=== PATIENT | male | born 1960 | race Caucasian/White ===

== ENCOUNTER 2020-02-06 13:08 | Emergency (ER) | payer OTHER ==
[~2020-02-06] VITALS: Ht 188 cm; Wt 100.0 kg
[2020-02-06] MEDS ORDERED: HYDROcodone/acetaminophen 5mg/325mg tablet PO ONE (16:20)
--- NOTE | 2020-02-06 16:29 | NUR ---
oracle technical developer at bedside.
[2020-02-06] MEDS ORDERED: CEPH250T PO (17:10)
[2020-02-06 17:33] VITALS: BP 98/69
== END 2020-02-06 17:34 | disposition home or self-care (01) ==
LOC: ER 13:08
DX: L97.311 Non-pressure chronic ulcer of right ankle limited to breakdown of skin (principal); I25.10 Atherosclerotic heart disease of native coronary artery without angina pectoris; I50.9 Heart failure, unspecified; I25.2 Old myocardial infarction; F17.200 Nicotine dependence, unspecified, uncomplicated; F15.90 Other stimulant use, unspecified, uncomplicated; F11.90 Opioid use, unspecified, uncomplicated
CPT/HCPCS: 93925; 99284

== ENCOUNTER 2020-02-11 09:15 | Outpatient (CLI) | payer OTHER ==
[~2020-02-11 09:15] MED LIST: CEPH250T PO
[2020-02-11] MEDS ORDERED: LIDOcaine 2% 5ml jelly ONE ×2 (11:01→11:06)
== END 2020-02-11 12:06 | disposition home or self-care (01) ==
LOC: WOUND CARE 09:15
PROVIDERS: ATTEND Nurse Practitioner
DX: I70.232 Atherosclerosis of native arteries of right leg with ulceration of calf (principal); I70.242 Atherosclerosis of native arteries of left leg with ulceration of calf; L97.222 Non-pressure chronic ulcer of left calf with fat layer exposed; L97.212 Non-pressure chronic ulcer of right calf with fat layer exposed; L03.116 Cellulitis of left lower limb; L03.115 Cellulitis of right lower limb; I25.10 Atherosclerotic heart disease of native coronary artery without angina pectoris; I50.9 Heart failure, unspecified; I25.2 Old myocardial infarction; F17.210 Nicotine dependence, cigarettes, uncomplicated; F11.90 Opioid use, unspecified, uncomplicated; F15.90 Other stimulant use, unspecified, uncomplicated
CPT/HCPCS: 87070; 87075; 87077; 87102; 87186; 97597

== ENCOUNTER → 2020-02-12 | Emergency (ER) | payer OTHER ==
[~2020-02-12] VITALS: Ht 188 cm; Wt 100.0 kg
[2020-02-12 14:37] VITALS: BP 108/71
== END | disposition home or self-care (01) ==
LOC: ER 14:01
DX: L03.119 Cellulitis of unspecified part of limb (principal); I25.10 Atherosclerotic heart disease of native coronary artery without angina pectoris; I50.9 Heart failure, unspecified; I25.2 Old myocardial infarction; F15.90 Other stimulant use, unspecified, uncomplicated; F11.90 Opioid use, unspecified, uncomplicated; Z79.899 Other long term (current) drug therapy
CPT/HCPCS: 99281

== ENCOUNTER 2020-02-16 11:30 | Day surgery (SDC) | payer OTHER ==
[2020-02-16] MEDS ORDERED: LIDOcaine 2% 5ml jelly ONE ×2 (12:23)
[2020-02-16] MEDS ORDERED: LIDOcaine 1% w/epiNEPHrine 1:200,000 30ml vial ONE (12:40)
== END 2020-02-17 14:05 | disposition home or self-care (01) ==
LOC: WOUND CARE 11:30
PROVIDERS: ATTEND Nurse Practitioner
DX: I70.232 Atherosclerosis of native arteries of right leg with ulceration of calf (principal); L97.212 Non-pressure chronic ulcer of right calf with fat layer exposed; I70.242 Atherosclerosis of native arteries of left leg with ulceration of calf; L97.222 Non-pressure chronic ulcer of left calf with fat layer exposed; L03.116 Cellulitis of left lower limb; L03.115 Cellulitis of right lower limb; I25.10 Atherosclerotic heart disease of native coronary artery without angina pectoris; I50.9 Heart failure, unspecified; I25.2 Old myocardial infarction; F17.210 Nicotine dependence, cigarettes, uncomplicated; F11.90 Opioid use, unspecified, uncomplicated; F15.90 Other stimulant use, unspecified, uncomplicated; Z79.899 Other long term (current) drug therapy; Z98.890 Other specified postprocedural states
CPT/HCPCS: 97597; 97598

== ENCOUNTER 2020-02-23 11:45 | Day surgery (SDC) | payer MEDICAID, OTHER ==
[2020-02-23] MEDS ORDERED: LIDOcaine 2% 5ml jelly ONE (12:32)
[2020-02-23] MEDS ORDERED: LIDOcaine 1% w/epiNEPHrine 1:200,000 30ml vial ONE (14:01)
== END 2020-02-23 15:14 | disposition home or self-care (01) ==
LOC: WOUND CARE 11:45
PROVIDERS: ATTEND Nurse Practitioner
DX: I70.232 Atherosclerosis of native arteries of right leg with ulceration of calf (principal); L97.212 Non-pressure chronic ulcer of right calf with fat layer exposed; I70.242 Atherosclerosis of native arteries of left leg with ulceration of calf; L97.222 Non-pressure chronic ulcer of left calf with fat layer exposed; L03.116 Cellulitis of left lower limb; L03.115 Cellulitis of right lower limb; K21.9 Gastro-esophageal reflux disease without esophagitis; I25.10 Atherosclerotic heart disease of native coronary artery without angina pectoris; I50.9 Heart failure, unspecified; I25.2 Old myocardial infarction; F17.210 Nicotine dependence, cigarettes, uncomplicated; F11.90 Opioid use, unspecified, uncomplicated; F15.90 Other stimulant use, unspecified, uncomplicated
CPT/HCPCS: 97597

== ENCOUNTER 2020-02-27 11:59 | Emergency (ER) | payer MEDICAID ==
[~2020-02-27] VITALS: Ht 188 cm; Wt 100.0 kg
[2020-02-27] MEDS ORDERED: OMEP20CA15 PO (12:44)
[2020-02-27] MEDS ORDERED: PRED20TA PO (12:44)
[2020-02-27] MEDS ORDERED: SUCR1TAB34 PO (12:44)
[2020-02-27] MEDS ORDERED: famotidine 10mg tablet PO ONE (12:45)
[2020-02-27] MEDS ORDERED: sucralfate 1gm/10ml UD suspension PO SCH (12:45)
[2020-02-27] MEDS ORDERED: diphenhydrAMINE 25mg capsule PO ONE (12:45)
[2020-02-27] MEDS ORDERED: dexamethasone 4mg tablet PO ONE (12:45)
[2020-02-27] MEDS ORDERED: mag hydrox/Alum hydrox/simeth 30ml oral suspension PO ONE (12:45)
[2020-02-27] MEDS ORDERED: LIDOcaine Viscous 15ml cup MM PRN (12:45)
[2020-02-27 13:38] VITALS: BP 119/68
== END 2020-02-27 13:39 | disposition home or self-care (01) ==
LOC: ER 12:00
DX: R10.13 Epigastric pain (principal); T50.905A Adverse effect of unspecified drugs, medicaments and biological substances, initial encounter; K21.9 Gastro-esophageal reflux disease without esophagitis; I25.10 Atherosclerotic heart disease of native coronary artery without angina pectoris; I50.9 Heart failure, unspecified; I25.2 Old myocardial infarction; F15.90 Other stimulant use, unspecified, uncomplicated; F11.90 Opioid use, unspecified, uncomplicated; Z98.890 Other specified postprocedural states; Z79.899 Other long term (current) drug therapy; Y92.89 Other specified places as the place of occurrence of the external cause
CPT/HCPCS: 99284; Q0163

== ENCOUNTER 2020-03-01 14:15 | Day surgery (SDC) | payer MEDICAID ==
[~2020-03-01 14:15] MED LIST changes: -CEPH250T PO; +OMEP20CA15 PO; +PRED20TA PO; +SUCR1TAB34 PO
[2020-03-01] MEDS ORDERED: LIDOcaine 2% 5ml jelly ONE (14:41)
[2020-03-01] MEDS ORDERED: hydrocortisone 1% cream 28gm TP ONE (15:32)
== END 2020-03-01 16:04 | disposition home or self-care (01) ==
LOC: WOUND CARE 14:15
PROVIDERS: ATTEND Nurse Practitioner
DX: I70.238 Atherosclerosis of native arteries of right leg with ulceration of other part of lower leg (principal); L97.812 Non-pressure chronic ulcer of other part of right lower leg with fat layer exposed; I70.248 Atherosclerosis of native arteries of left leg with ulceration of other part of lower leg; L97.821 Non-pressure chronic ulcer of other part of left lower leg limited to breakdown of skin; I70.243 Atherosclerosis of native arteries of left leg with ulceration of ankle; L97.321 Non-pressure chronic ulcer of left ankle limited to breakdown of skin; I70.232 Atherosclerosis of native arteries of right leg with ulceration of calf; L97.212 Non-pressure chronic ulcer of right calf with fat layer exposed; I70.242 Atherosclerosis of native arteries of left leg with ulceration of calf; L97.222 Non-pressure chronic ulcer of left calf with fat layer exposed; L03.115 Cellulitis of right lower limb; I25.10 Atherosclerotic heart disease of native coronary artery without angina pectoris; K21.9 Gastro-esophageal reflux disease without esophagitis; I50.9 Heart failure, unspecified; I25.2 Old myocardial infarction; F17.210 Nicotine dependence, cigarettes, uncomplicated; F11.90 Opioid use, unspecified, uncomplicated; F15.90 Other stimulant use, unspecified, uncomplicated
CPT/HCPCS: 97597; 97598

== ENCOUNTER 2020-03-08 14:10 | Day surgery (SDC) | payer MEDICAID ==
[2020-03-08] MEDS ORDERED: LIDOcaine 2% 5ml jelly ONE (14:20)
== END 2020-03-08 15:22 | disposition home or self-care (01) ==
LOC: WOUND CARE 14:10
PROVIDERS: ATTEND Nurse Practitioner
DX: I70.238 Atherosclerosis of native arteries of right leg with ulceration of other part of lower leg (principal); L97.812 Non-pressure chronic ulcer of other part of right lower leg with fat layer exposed; I70.248 Atherosclerosis of native arteries of left leg with ulceration of other part of lower leg; L97.821 Non-pressure chronic ulcer of other part of left lower leg limited to breakdown of skin; I70.232 Atherosclerosis of native arteries of right leg with ulceration of calf; L97.212 Non-pressure chronic ulcer of right calf with fat layer exposed; I70.242 Atherosclerosis of native arteries of left leg with ulceration of calf; L97.222 Non-pressure chronic ulcer of left calf with fat layer exposed; S81.802D Unspecified open wound, left lower leg, subsequent encounter; L03.115 Cellulitis of right lower limb; I25.10 Atherosclerotic heart disease of native coronary artery without angina pectoris; K21.9 Gastro-esophageal reflux disease without esophagitis; I50.9 Heart failure, unspecified; I25.2 Old myocardial infarction; F17.210 Nicotine dependence, cigarettes, uncomplicated; F11.90 Opioid use, unspecified, uncomplicated; F15.90 Other stimulant use, unspecified, uncomplicated; Z79.899 Other long term (current) drug therapy; X58.XXXD Exposure to other specified factors, subsequent encounter
CPT/HCPCS: 97597; 97598

== ENCOUNTER 2020-03-15 13:20 | Day surgery (SDC) | payer MEDICAID ==
[2020-03-15] MEDS ORDERED: LIDOcaine 2% 5ml jelly ONE (13:32)
[2020-03-15] MEDS ORDERED: hydrocortisone 1% cream 28gm TP ONE (14:04)
== END 2020-03-15 14:14 | disposition home or self-care (01) ==
LOC: WOUND CARE 13:20
PROVIDERS: ATTEND Nurse Practitioner
DX: I70.238 Atherosclerosis of native arteries of right leg with ulceration of other part of lower leg (principal); L97.812 Non-pressure chronic ulcer of other part of right lower leg with fat layer exposed; I70.232 Atherosclerosis of native arteries of right leg with ulceration of calf; L97.212 Non-pressure chronic ulcer of right calf with fat layer exposed; I70.242 Atherosclerosis of native arteries of left leg with ulceration of calf; L97.222 Non-pressure chronic ulcer of left calf with fat layer exposed; L03.116 Cellulitis of left lower limb; L03.115 Cellulitis of right lower limb; I25.10 Atherosclerotic heart disease of native coronary artery without angina pectoris; I50.9 Heart failure, unspecified; K21.9 Gastro-esophageal reflux disease without esophagitis; I25.2 Old myocardial infarction; F17.210 Nicotine dependence, cigarettes, uncomplicated; F11.90 Opioid use, unspecified, uncomplicated; F15.90 Other stimulant use, unspecified, uncomplicated; Z79.899 Other long term (current) drug therapy
CPT/HCPCS: 97597

== ENCOUNTER 2020-03-27 11:30 | Day surgery (SDC) | payer MEDICAID ==
[2020-03-27] MEDS ORDERED: LIDOcaine 2% 5ml jelly ONE (12:23)
[2020-03-27] MEDS ORDERED: hydrocortisone 1% cream 28gm TP ONE (12:51)
== END 2020-03-27 13:05 | disposition home or self-care (01) ==
LOC: WOUND CARE 11:30
PROVIDERS: ATTEND Nurse Practitioner Family
DX: I70.238 Atherosclerosis of native arteries of right leg with ulceration of other part of lower leg (principal); L97.812 Non-pressure chronic ulcer of other part of right lower leg with fat layer exposed; I70.232 Atherosclerosis of native arteries of right leg with ulceration of calf; L97.212 Non-pressure chronic ulcer of right calf with fat layer exposed; I70.242 Atherosclerosis of native arteries of left leg with ulceration of calf; L97.222 Non-pressure chronic ulcer of left calf with fat layer exposed; L03.116 Cellulitis of left lower limb; L03.115 Cellulitis of right lower limb; I25.10 Atherosclerotic heart disease of native coronary artery without angina pectoris; I50.9 Heart failure, unspecified; K21.9 Gastro-esophageal reflux disease without esophagitis; I25.2 Old myocardial infarction; F17.210 Nicotine dependence, cigarettes, uncomplicated; F11.90 Opioid use, unspecified, uncomplicated; F15.90 Other stimulant use, unspecified, uncomplicated; Z79.899 Other long term (current) drug therapy
CPT/HCPCS: 97597; 97598

== ENCOUNTER 2020-03-29 14:14 | Inpatient (IN) | payer MEDICAID ==
[~2020-03-29] VITALS: Ht 188 cm; Wt 100.0 kg
[2020-03-29] MEDS ORDERED: HYDROcodone/acetaminophen 5mg/325mg tablet PO ONE (14:55)
[2020-03-29 16:27] LABS: BASOPHILS # (AUTO) 0.1 X10'3 (0-0.2); BASOPHILS % (AUTO) 0.6 % (0-1); EOSINOPHILS # (AUTO) 0.3 X10'3 (0-0.9); EOSINOPHILS % (AUTO) 2.8 % (0-6); HEMATOCRIT 30.9 % (42.0-52.0); HEMOGLOBIN 10.1 g/dl (14.0-17.9); LYMPHOCYTES # (AUTO) 2.1 X10'3 (1.1-4.8); LYMPHOCYTES % (AUTO) 20.6 % (21-51); MEAN CORPUSCULAR HEMOGLOBIN 27.6 PG (27.0-31.0); MEAN CORPUSCULAR HGB CONC 32.8 g/dL (33.0-36.5); MEAN PLATELET VOLUME 6.6 FL (7.4-10.4); MONOCYTES # (AUTO) 2.2 X10'3 (0-0.9); NEUTROPHILS # (AUTO) 5.7 X10'3 (1.8-7.7); PLATELET COUNT 314 X10'3 (140-440); RED BLOOD COUNT 3.68 X10'6 (4.70-6.10); RED CELL DISTRIBUTION WIDTH 17.8 % (11.5-14.5); WHITE BLOOD COUNT 10.3 X10'3 (4.5-11.0)
[2020-03-29] MEDS ORDERED: enoxaparin 100mg/ml syringe SUBCUT ONE (16:30)
[2020-03-29 16:44] LABS: ALANINE AMINOTRANSFERASE 14 U/L (12-78); ALBUMIN 2.5 G/DL (3.4-5.0); ALBUMIN/GLOBULIN RATIO 0.5 (1.1-1.5); ALKALINE PHOSPHATASE 138 IU/L (46-116); ANION GAP 6 (8-16); ASPARTATE AMINO TRANSFERASE 18 U/L (10-37); BILIRUBIN,TOTAL 0.4 MG/DL (0.1-1.0); BLOOD UREA NITROGEN 9 MG/DL (7-18); BUN/CREATININE RATIO 9.6 (5.4-32.0); CALCIUM 8.6 MG/DL (8.5-10.1); CHLORIDE 102 MMOL/L (99-107); CREATININE 0.94 MG/DL (0.60-1.10); GLUCOSE 107 MG/DL (70-104); POTASSIUM 3.8 MMOL/L (3.5-5.1); SODIUM 132 MMOL/L (135-145); TOTAL CARBON DIOXIDE 23.6 MMOL/L (24-32); TOTAL PROTEIN 7.2 G/DL (6.4-8.2); eGFR 82 ML/MIN
[2020-03-29 17:19] LABS: ANISOCYTOSIS 1+; PLATELET ESTIMATE NORMAL; SCHISTOCYTES 1+; TOTAL CELLS COUNTED 100
[2020-03-29 17:20] LABS: ACANTHOCYTES FEW; BURR CELLS 1+; POLYCHROMASIA 1+
[2020-03-29 17:22] LABS: ELLIPTOCYTES 1+
[2020-03-29] MEDS ORDERED: NO HOME MEDS (17:27)
[2020-03-29] MEDS ORDERED: iohexol 350MG/ML 100ml bottle IV ONE (17:32)
--- NOTE | 2020-03-29 18:11 | NUR ---
Clarifying heparin order based on DVT/PE protocol and the lovenox dose already was given. Pharmacy is researching the time in between to start the dose.
--- NOTE | 2020-03-29 18:11 | NUR ---
Patient reported he takes methadone routinely. Spoke with Tor, Pharmacist to let him know this needs to be added to the medication reconciliation. He reports he will pull a [facility] report to verify the dosing if possible.
--- NOTE | 2020-03-29 21:03 | NUR ---
Patient has been seen by the Hospitalist and admission orders are pending.
[2020-03-29] MEDS: normal saline 1000ml 1,000 ML IV SCH (21:25)
[2020-03-29] MEDS ORDERED: magnesium 2GM in 50ml NS 50 ML IV PRN (21:25)
[2020-03-29] MEDS ORDERED: magnesium 4gm in 100ml NS 100 ML IV PRN (21:25)
[2020-03-29] MEDS ORDERED: potassium CL 10mEq/100ml bag 100 ML IV PRN ×2 (21:25)
[2020-03-29] MEDS ORDERED: potassium Cl 20 mEq SR tablet PO PRN (21:25)
[2020-03-29] MEDS ORDERED: ondansetron/PF 4mg/2ml inj IV PRN (21:25)
[2020-03-29] MEDS ORDERED: magnesium Cl slow-release 64mg tablet PO PRN (21:25)
[2020-03-29] MEDS ORDERED: morphine 2 MG/ML inj. syringe IV PRN (21:25)
[2020-03-29] MEDS ORDERED: ipratropium/albuterol 3ml nebule NEB PRN ×2 (21:25)
[2020-03-29] MEDS ORDERED: acetaminophen 325mg tablet PO PRN (21:25)
[2020-03-29 22:00] VITALS: BP 118/69
--- NOTE | 2020-03-29 22:02 | NUR ---
Pt given a sandwich and yogurt to eat with apple juice and water to drink. Pt is awaiting admission bed assignment.
[2020-03-29 22:42] LABS: TROPONIN I < 0.04 NG/ML (0.0-0.05)
[2020-03-29] MEDS: HYDROcodone/acetaminophen 5mg/325mg tablet PO PRN (23:30)
[2020-03-30 02:02] LABS: EOSINOPHILS # (AUTO) 0.4 X10'3 (0-0.9); MEAN PLATELET VOLUME 6.7 FL (7.4-10.4); MONOCYTES # (AUTO) 2.2 X10'3 (0-0.9)
[2020-03-30 02:04] LABS: BASOPHILS # (AUTO) 0.1 X10'3 (0-0.2); EOSINOPHILS % (AUTO) 3.7 % (0-6); HEMATOCRIT 30.5 % (42.0-52.0); HEMOGLOBIN 9.8 g/dl (14.0-17.9); LYMPHOCYTES # (AUTO) 2.8 X10'3 (1.1-4.8); LYMPHOCYTES % (AUTO) 25.9 % (21-51); MEAN CORPUSCULAR HEMOGLOBIN 26.9 PG (27.0-31.0); MEAN CORPUSCULAR HGB CONC 32.3 g/dL (33.0-36.5); MEAN CORPUSCULAR VOLUME 83.1 FL (78-98); MONOCYTES % (AUTO) 20.2 % (2-12); NEUTROPHILS # (AUTO) 5.3 X10'3 (1.8-7.7); NEUTROPHILS % (AUTO) 49.2 % (42-75); PLATELET COUNT 316 X10'3 (140-440); RED BLOOD COUNT 3.67 X10'6 (4.70-6.10); RED CELL DISTRIBUTION WIDTH 18.4 % (11.5-14.5); WHITE BLOOD COUNT 10.8 X10'3 (4.5-11.0)
[2020-03-30 02:13] LABS: ALBUMIN 2.3 G/DL (3.4-5.0); ANION GAP 7 (8-16); BLOOD UREA NITROGEN 9 MG/DL (7-18); BUN/CREATININE RATIO 10.3 (5.4-32.0); CALCIUM 8.3 MG/DL (8.5-10.1); CHLORIDE 102 MMOL/L (99-107); CREATININE 0.87 MG/DL (0.60-1.10); GLUCOSE 95 MG/DL (70-104); MAGNESIUM 2.2 MG/DL (1.5-2.4); POTASSIUM 3.4 MMOL/L (3.5-5.1); SODIUM 133 MMOL/L (135-145); TOTAL CARBON DIOXIDE 23.9 MMOL/L (24-32); eGFR 90 ML/MIN
[2020-03-30 02:15] LABS: ANISOCYTOSIS 1+; ELLIPTOCYTES 1+; PLATELET ESTIMATE NORMAL; POIKILOCYTOSIS 2+; POLYCHROMASIA 1+; SCHISTOCYTES 1+; TOTAL CELLS COUNTED 100
[2020-03-30 02:16] LABS: ACANTHOCYTES 2+; BURR CELLS 2+
[2020-03-30] MEDS: heparin 25,000 UNIT/250ml bag 250 ML IV SCH ×2 (02:52→15:49)
--- NOTE | 2020-03-30 06:44 | NUR ---
Patient in room PCU 3023. I have received report from Ania ZURITA and had the opportunity to ask questions and assume patient care.
[2020-03-30 07:00] VITALS: BP 90/63
[2020-03-30] MEDS: HYDROcodone/acetaminophen 5mg/325mg tablet PO PRN (07:37)
[2020-03-30] MEDS: docusate sod 100mg capsule PO SCH ×2 (07:37→19:34)
[2020-03-30] MEDS: potassium Cl 20 mEq SR tablet PO PRN ×3 (07:38→18:25)
[2020-03-30] MEDS: K and/or MAG REPLACEMENT MC SCH ×2 (08:00→19:37)
[2020-03-30 11:00] VITALS: BP 94/63
[2020-03-30] MEDS: methadone 10mg tablet PO SCH (11:19)
[2020-03-30] MEDS: HYDROcodone/acetaminophen 10/325mg tab PO PRN ×3 (14:25→23:03)
[2020-03-30 15:00] VITALS: BP 88/61
--- NOTE | 2020-03-30 17:34 | NUR ---
patient remains on bedrest for DVT. heparin infusion continues. patient is therapeutic . For VL study Commenced on methadone. patient takes this daily. Checked with clinic [facility] [phone], to verify dosage. [place] ok by DR Rhodes to take for breakthrough pain given x1 dose with effect. does not advise IV pain relief. patient compliant with care. Seen by wound care, dressing to left leg is to remain in tact, as patient is seen already by wound care weekly. see note.
[2020-03-30 18:00] VITALS: BP 99/71
--- NOTE | 2020-03-30 18:32 | NUR ---
Patient in room U 3023. I have received report from PARMINDER Hassan and had the opportunity to ask questions and assume patient care. Addendum: 03/30/20 at 1832 by Mirtha Awad RN Amended: Links added.
--- NOTE | 2020-03-30 18:32 | NUR ---
Problems reprioritized. Patient report given, questions answered & plan of care reviewed with deven ZURITA.
--- NOTE | 2020-03-30 18:46 | NUR ---
Vascular repaged about doing vascular studies as wasnt done. Tech stated he will do this in am. This staff member had called earlier in day to affirm test needed doing.
[2020-03-30] MEDS: sucralfate 1gm/10ml UD suspension PO SCH (20:18)
[2020-03-31 02:00] VITALS: BP 115/73
[2020-03-31 02:42] LABS: BASOPHILS # (AUTO) 0.1 X10'3 (0-0.2); BASOPHILS % (AUTO) 0.6 % (0-1); EOSINOPHILS # (AUTO) 0.3 X10'3 (0-0.9); EOSINOPHILS % (AUTO) 2.7 % (0-6); HEMATOCRIT 32.8 % (42.0-52.0); HEMOGLOBIN 10.7 g/dl (14.0-17.9); LYMPHOCYTES # (AUTO) 3.1 X10'3 (1.1-4.8); LYMPHOCYTES % (AUTO) 29.5 % (21-51); MEAN CORPUSCULAR HEMOGLOBIN 26.9 PG (27.0-31.0); MEAN CORPUSCULAR HGB CONC 32.7 g/dL (33.0-36.5); MEAN CORPUSCULAR VOLUME 82.4 FL (78-98); MEAN PLATELET VOLUME 6.7 FL (7.4-10.4); MONOCYTES # (AUTO) 1.8 X10'3 (0-0.9); MONOCYTES % (AUTO) 17.3 % (2-12); NEUTROPHILS # (AUTO) 5.3 X10'3 (1.8-7.7); NEUTROPHILS % (AUTO) 49.9 % (42-75); PLATELET COUNT 383 X10'3 (140-440); RED BLOOD COUNT 3.99 X10'6 (4.70-6.10); RED CELL DISTRIBUTION WIDTH 18.6 % (11.5-14.5); WHITE BLOOD COUNT 10.6 X10'3 (4.5-11.0)
[2020-03-31 02:59] LABS: ALBUMIN 2.4 G/DL (3.4-5.0); ANION GAP 8 (8-16); BLOOD UREA NITROGEN 11 MG/DL (7-18); BUN/CREATININE RATIO 12.1 (5.4-32.0); CALCIUM 8.9 MG/DL (8.5-10.1); CHLORIDE 101 MMOL/L (99-107); CREATININE 0.91 MG/DL (0.60-1.10); GLUCOSE 88 MG/DL (70-104); MAGNESIUM 2.3 MG/DL (1.5-2.4); POTASSIUM 3.8 MMOL/L (3.5-5.1); SODIUM 134 MMOL/L (135-145); TOTAL CARBON DIOXIDE 24.8 MMOL/L (24-32); eGFR 85 ML/MIN
[2020-03-31] MEDS: HYDROcodone/acetaminophen 10/325mg tab PO PRN ×5 (03:11→21:07)
[2020-03-31 03:12] LABS: ANISOCYTOSIS 1+; PLATELET ESTIMATE NORMAL; POIKILOCYTOSIS 2+; TOTAL CELLS COUNTED 100
[2020-03-31 03:13] LABS: ACANTHOCYTES 2+; BURR CELLS 2+; ELLIPTOCYTES 1+; POLYCHROMASIA 1+; SCHISTOCYTES 1+
[2020-03-31 06:00] VITALS: BP 102/67
--- NOTE | 2020-03-31 06:30 | NUR ---
Problems reprioritized. Patient report given, questions answered & plan of care reviewed with PARMINDER Serna.
[2020-03-31] MEDS: K and/or MAG REPLACEMENT MC SCH ×2 (07:07→19:20)
[2020-03-31] MEDS: docusate sod 100mg capsule PO SCH ×2 (07:30→21:04)
[2020-03-31] MEDS: sucralfate 1gm/10ml UD suspension PO SCH ×5 (07:30→21:07)
[2020-03-31] MEDS: methadone 10mg tablet PO SCH (07:30)
[2020-03-31] MEDS: heparin 25,000 UNIT/250ml bag 250 ML IV SCH ×2 (07:37→21:11)
[2020-03-31 11:00] VITALS: BP 102/67
[2020-03-31 15:00] VITALS: BP 104/61
[2020-03-31 18:00] VITALS: BP 96/49
--- NOTE | 2020-03-31 18:40 | NUR ---
Problems reprioritized. Patient report given, questions answered & plan of care reviewed with jaycee miles.
[2020-03-31] MEDS: normal saline 1000ml 1,000 ML IV SCH (21:07)
[2020-03-31 22:18] VITALS: BP 92/58
[2020-04-01] MEDS: HYDROcodone/acetaminophen 10/325mg tab PO PRN ×3 (01:04→12:00)
[2020-04-01 03:03] LABS: BASOPHILS # (AUTO) 0.2 X10'3 (0-0.2); BASOPHILS % (AUTO) 1.6 % (0-1); EOSINOPHILS # (AUTO) 0.3 X10'3 (0-0.9); EOSINOPHILS % (AUTO) 2.5 % (0-6); HEMATOCRIT 31.7 % (42.0-52.0); HEMOGLOBIN 10.2 g/dl (14.0-17.9); LYMPHOCYTES # (AUTO) 3.3 X10'3 (1.1-4.8); MEAN CORPUSCULAR HEMOGLOBIN 26.3 PG (27.0-31.0); MEAN CORPUSCULAR VOLUME 82.1 FL (78-98); MONOCYTES # (AUTO) 1.8 X10'3 (0-0.9); MONOCYTES % (AUTO) 17.5 % (2-12); NEUTROPHILS # (AUTO) 4.7 X10'3 (1.8-7.7); NEUTROPHILS % (AUTO) 46.4 % (42-75); PLATELET COUNT 415 X10'3 (140-440); RED BLOOD COUNT 3.87 X10'6 (4.70-6.10); RED CELL DISTRIBUTION WIDTH 17.9 % (11.5-14.5); WHITE BLOOD COUNT 10.2 X10'3 (4.5-11.0)
[2020-04-01 03:15] LABS: ALBUMIN 2.2 G/DL (3.4-5.0); ANION GAP 7 (8-16); BLOOD UREA NITROGEN 11 MG/DL (7-18); CALCIUM 8.7 MG/DL (8.5-10.1); CHLORIDE 101 MMOL/L (99-107); CREATININE 0.92 MG/DL (0.60-1.10); GLUCOSE 92 MG/DL (70-104); MAGNESIUM 2.3 MG/DL (1.5-2.4); SODIUM 133 MMOL/L (135-145); TOTAL CARBON DIOXIDE 24.8 MMOL/L (24-32); eGFR 84 ML/MIN
[2020-04-01 04:08] LABS: ACANTHOCYTES FEW; ANISOCYTOSIS 1+; BURR CELLS 1+; ELLIPTOCYTES FEW; PLATELET ESTIMATE NORMAL; POIKILOCYTOSIS 1+; POLYCHROMASIA FEW; SCHISTOCYTES FEW; TOTAL CELLS COUNTED 100
--- NOTE | 2020-04-01 06:37 | NUR ---
Reported off to Tiffanie ZURITA. Patient is awake and alert on room air. Call light and items of frequent use within reach.
[2020-04-01 07:13] VITALS: BP 93/64
[2020-04-01] MEDS: K and/or MAG REPLACEMENT MC SCH (08:00)
[2020-04-01] MEDS: docusate sod 100mg capsule PO SCH (08:00)
[2020-04-01] MEDS: methadone 10mg tablet PO SCH (08:11)
[2020-04-01] MEDS: sucralfate 1gm/10ml UD suspension PO SCH ×2 (08:11→11:35)
[2020-04-01] MEDS ORDERED: apixaban 5mg tablet PO ONE (10:15)
--- NOTE | 2020-04-01 10:22 | NUR ---
Pt. refused for assessment on posterior lung sounds. Stated, "I don't feel like sitting up or rolling over."
[2020-04-01] MEDS ORDERED: APIX5TAB3 PO (10:54)
[2020-04-01 11:00] VITALS: BP 96/66
--- NOTE | 2020-04-01 11:11 | NUR ---
Called [facility]. Transport arranged between 1230pm and 1pm. Spoke to
--- NOTE | 2020-04-01 11:21 | NUR ---
PAGER ID: [phone] MESSAGE: Duane Matson [id number] Intial dosing for pt w/ DVT is 10 mg BID for 7 days and then 5 mg BID. Did you mean to order 5mg BID on his discharge paperwork? Will discharge with current orders if no reply. Tiffanie [phone]
[2020-04-01] MEDS ORDERED: ondansetron 4mg rapidly disintigrating tab PO PRN (11:30)
--- NOTE | 2020-04-01 12:10 | NUR ---
Reviewed discharge paperwork with pt. Pt. gave good verbal feedback on medications. Aware to pickle processor his mediation at pharmacy and a partnership ride has been arranged for him. Pt. states he uses a walker but that he has one at home. His family member was called to make sure that she knew the pt. was coming and so that she could meet him outside with the walker. Pt. gathered all belongings and took them with him. No tele to DC. IV DC'd and bandage applied.
== END 2020-04-01 12:10 | disposition home or self-care (01) | DRG 197 ==
LOC: ER 14:15 → ED HOLD 21:25 → PCU 3S 22:30
PROVIDERS: ADMIT Internal Medicine; ATTEND Family Medicine
DX: I82.412 Acute embolism and thrombosis of left femoral vein (principal); I26.99 Other pulmonary embolism without acute cor pulmonale; I25.10 Atherosclerotic heart disease of native coronary artery without angina pectoris; Z79.01 Long term (current) use of anticoagulants; Z86.718 Personal history of other venous thrombosis and embolism; I50.9 Heart failure, unspecified; Z86.711 Personal history of pulmonary embolism; I73.9 Peripheral vascular disease, unspecified; K21.9 Gastro-esophageal reflux disease without esophagitis; F17.210 Nicotine dependence, cigarettes, uncomplicated
CPT/HCPCS: 36415; 71275; 76937; 80048; 80053; 83735; 84484; 85007; 85025; 85610; 85730; 87081; 93005; 93306; 93308; 93925; 93971; 94760; 96372; 99285; G0378; J1644; J1650; J7030; Q9967

== ENCOUNTER 2020-04-05 13:40 | Outpatient (CLI) | payer MEDICAID ==
[~2020-04-05 13:40] MED LIST changes: +APIX5TAB3 PO; -OMEP20CA15 PO; -PRED20TA PO; -SUCR1TAB34 PO
[2020-04-05] MEDS ORDERED: LIDOcaine 2% 5ml jelly ONE (15:08)
== END 2020-04-05 15:30 | disposition home or self-care (01) ==
LOC: EDSTATUS 13:40 → WOUND CARE 13:40
PROVIDERS: ATTEND Nurse Practitioner
DX: I70.238 Atherosclerosis of native arteries of right leg with ulceration of other part of lower leg (principal); L97.812 Non-pressure chronic ulcer of other part of right lower leg with fat layer exposed; I70.232 Atherosclerosis of native arteries of right leg with ulceration of calf; L97.212 Non-pressure chronic ulcer of right calf with fat layer exposed; I70.242 Atherosclerosis of native arteries of left leg with ulceration of calf; L97.222 Non-pressure chronic ulcer of left calf with fat layer exposed; L03.116 Cellulitis of left lower limb; L03.115 Cellulitis of right lower limb; I25.10 Atherosclerotic heart disease of native coronary artery without angina pectoris; I50.9 Heart failure, unspecified; K21.9 Gastro-esophageal reflux disease without esophagitis; I25.2 Old myocardial infarction; F17.210 Nicotine dependence, cigarettes, uncomplicated; F11.90 Opioid use, unspecified, uncomplicated; F15.90 Other stimulant use, unspecified, uncomplicated; Z79.899 Other long term (current) drug therapy
CPT/HCPCS: 97597

== ENCOUNTER → 2020-04-18 | Outpatient (CLI) | payer MEDICAID ==
[~2020-04-18] MED LIST changes: +LIDOcaine 2% 5ml jelly ONE; +hydrocortisone 1% cream 28gm TP ONE
== END | disposition home or self-care (01) ==
LOC: WOUND CARE 13:50
PROVIDERS: ATTEND Nurse Practitioner
DX: I70.238 Atherosclerosis of native arteries of right leg with ulceration of other part of lower leg (principal); L97.812 Non-pressure chronic ulcer of other part of right lower leg with fat layer exposed; I70.232 Atherosclerosis of native arteries of right leg with ulceration of calf; L97.212 Non-pressure chronic ulcer of right calf with fat layer exposed; I70.242 Atherosclerosis of native arteries of left leg with ulceration of calf; L97.222 Non-pressure chronic ulcer of left calf with fat layer exposed; L03.116 Cellulitis of left lower limb; L03.115 Cellulitis of right lower limb; I25.10 Atherosclerotic heart disease of native coronary artery without angina pectoris; I26.09 Other pulmonary embolism with acute cor pulmonale; I50.9 Heart failure, unspecified; K21.9 Gastro-esophageal reflux disease without esophagitis; I25.2 Old myocardial infarction; L29.9 Pruritus, unspecified; F17.210 Nicotine dependence, cigarettes, uncomplicated; F11.90 Opioid use, unspecified, uncomplicated; F15.90 Other stimulant use, unspecified, uncomplicated; Z79.899 Other long term (current) drug therapy; Z79.01 Long term (current) use of anticoagulants; Z86.718 Personal history of other venous thrombosis and embolism; Z86.711 Personal history of pulmonary embolism; Z98.890 Other specified postprocedural states
CPT/HCPCS: 97597

== ENCOUNTER 2020-05-04 13:04 | Outpatient (CLI) | payer MEDICAID ==
[~2020-05-04 13:04] MED LIST changes: -LIDOcaine 2% 5ml jelly ONE; -hydrocortisone 1% cream 28gm TP ONE
[2020-05-04] MEDS ORDERED: LIDOcaine 2% 5ml jelly ONE (13:21)
== END 2020-05-04 23:59 | disposition home or self-care (01) ==
LOC: WOUND CARE 13:04
PROVIDERS: ATTEND Nurse Practitioner
DX: I70.238 Atherosclerosis of native arteries of right leg with ulceration of other part of lower leg (principal); L97.812 Non-pressure chronic ulcer of other part of right lower leg with fat layer exposed; I70.232 Atherosclerosis of native arteries of right leg with ulceration of calf; L97.212 Non-pressure chronic ulcer of right calf with fat layer exposed; I70.242 Atherosclerosis of native arteries of left leg with ulceration of calf; L97.222 Non-pressure chronic ulcer of left calf with fat layer exposed; L03.115 Cellulitis of right lower limb; I25.10 Atherosclerotic heart disease of native coronary artery without angina pectoris; I26.09 Other pulmonary embolism with acute cor pulmonale; I50.9 Heart failure, unspecified; K21.9 Gastro-esophageal reflux disease without esophagitis; I25.2 Old myocardial infarction; L29.9 Pruritus, unspecified; F17.210 Nicotine dependence, cigarettes, uncomplicated; F11.90 Opioid use, unspecified, uncomplicated; F15.90 Other stimulant use, unspecified, uncomplicated; Z79.899 Other long term (current) drug therapy; Z79.01 Long term (current) use of anticoagulants; Z86.718 Personal history of other venous thrombosis and embolism; Z86.711 Personal history of pulmonary embolism; Z98.890 Other specified postprocedural states
CPT/HCPCS: 97597

== ENCOUNTER 2020-05-04 14:09 | Emergency (ER) | payer MEDICAID ==
[~2020-05-04] VITALS: Ht 188 cm; Wt 91.9 kg
[2020-05-04 14:13] VITALS: BP 107/60
== END 2020-05-04 15:21 | disposition home or self-care (01) ==
LOC: ER 14:10
DX: H61.22 Impacted cerumen, left ear (principal); H92.02 Otalgia, left ear; I25.10 Atherosclerotic heart disease of native coronary artery without angina pectoris; I50.9 Heart failure, unspecified; I25.2 Old myocardial infarction; F17.200 Nicotine dependence, unspecified, uncomplicated; F15.90 Other stimulant use, unspecified, uncomplicated; F11.90 Opioid use, unspecified, uncomplicated; Z86.711 Personal history of pulmonary embolism; Z86.718 Personal history of other venous thrombosis and embolism; Z98.890 Other specified postprocedural states; Z59.0 Homelessness; Z79.899 Other long term (current) drug therapy
CPT/HCPCS: 69209; 99282

== ENCOUNTER 2020-05-11 12:26 | Outpatient (CLI) | payer MEDICAID ==
[2020-05-11] MEDS ORDERED: hydrocortisone 1% cream 28gm TP ONE (12:49)
== END 2020-05-11 23:59 | disposition home or self-care (01) ==
LOC: WOUND CARE 12:26 → EDSTATUS 12:40 → WOUND CARE 23:59
PROVIDERS: ATTEND Nurse Practitioner
DX: I70.238 Atherosclerosis of native arteries of right leg with ulceration of other part of lower leg (principal); L97.812 Non-pressure chronic ulcer of other part of right lower leg with fat layer exposed; I70.232 Atherosclerosis of native arteries of right leg with ulceration of calf; L97.212 Non-pressure chronic ulcer of right calf with fat layer exposed; I70.242 Atherosclerosis of native arteries of left leg with ulceration of calf; L97.222 Non-pressure chronic ulcer of left calf with fat layer exposed; L03.115 Cellulitis of right lower limb; L03.116 Cellulitis of left lower limb; I25.10 Atherosclerotic heart disease of native coronary artery without angina pectoris; I26.09 Other pulmonary embolism with acute cor pulmonale; I50.9 Heart failure, unspecified; K21.9 Gastro-esophageal reflux disease without esophagitis; I25.2 Old myocardial infarction; F17.210 Nicotine dependence, cigarettes, uncomplicated; F11.90 Opioid use, unspecified, uncomplicated; F15.90 Other stimulant use, unspecified, uncomplicated; Z79.899 Other long term (current) drug therapy; Z79.01 Long term (current) use of anticoagulants; Z86.718 Personal history of other venous thrombosis and embolism; Z86.711 Personal history of pulmonary embolism; Z98.890 Other specified postprocedural states
CPT/HCPCS: G0463

== ENCOUNTER 2020-10-25 01:24 | Emergency (ER) | payer MEDICAID ==
[~2020-10-25] VITALS: Ht 188 cm; Wt 109.1 kg
[2020-10-25 02:59] LABS: ALANINE AMINOTRANSFERASE 17 U/L (12-78); ALBUMIN 3.3 G/DL (3.4-5.0); ALBUMIN/GLOBULIN RATIO 0.8 (1.1-1.5); ALKALINE PHOSPHATASE 111 IU/L (46-116); ANION GAP 9 (8-16); ASPARTATE AMINO TRANSFERASE 14 U/L (10-37); BILIRUBIN,TOTAL 0.2 MG/DL (0.1-1.0); BLOOD UREA NITROGEN 16 MG/DL (7-18); BUN/CREATININE RATIO 14.3 (5.4-32.0); CALCIUM 8.8 MG/DL (8.5-10.1); CHLORIDE 104 MMOL/L (99-107); CREATININE 1.12 MG/DL (0.60-1.10); GLUCOSE 91 MG/DL (70-104); POTASSIUM 4.1 MMOL/L (3.5-5.1); SODIUM 137 MMOL/L (135-145); TOTAL CARBON DIOXIDE 23.7 MMOL/L (24-32); TOTAL PROTEIN 7.5 G/DL (6.4-8.2); eGFR 67 ML/MIN
[2020-10-25 03:00] LABS: BASOPHILS % (AUTO) 0.6 % (0-1); EOSINOPHILS # (AUTO) 0.2 X10'3 (0-0.9); EOSINOPHILS % (AUTO) 3.3 % (0-6); HEMATOCRIT 36.5 % (42.0-52.0); HEMOGLOBIN 12.4 g/dl (14.0-17.9); LYMPHOCYTES # (AUTO) 3.4 X10'3 (1.1-4.8); LYMPHOCYTES % (AUTO) 46.6 % (21-51); MEAN CORPUSCULAR HEMOGLOBIN 31.1 PG (27.0-31.0); MEAN CORPUSCULAR VOLUME 91.3 FL (78-98); MONOCYTES # (AUTO) 1.1 X10'3 (0-0.9); MONOCYTES % (AUTO) 15.5 % (2-12); NEUTROPHILS # (AUTO) 2.5 X10'3 (1.8-7.7); PLATELET COUNT 321 X10'3 (140-440); RED BLOOD COUNT 3.99 X10'6 (4.70-6.10); RED CELL DISTRIBUTION WIDTH 16.2 % (11.5-14.5); WHITE BLOOD COUNT 7.3 X10'3 (4.5-11.0)
[2020-10-25 03:44] LABS: PLATELET ESTIMATE NORMAL; TOTAL CELLS COUNTED 100
[2020-10-25 03:45] LABS: ANISOCYTOSIS 1+; BURR CELLS 1+; ELLIPTOCYTES FEW; SCHISTOCYTES FEW
[2020-10-25] MEDS ORDERED: iohexol 350MG/ML 100ml bottle IV ONE (03:49)
[2020-10-25 05:39] VITALS: BP 109/74
== END 2020-10-25 06:00 | disposition home or self-care (01) ==
LOC: ER 01:24
DX: R06.02 Shortness of breath (principal); R07.81 Pleurodynia; M54.2 Cervicalgia; I25.10 Atherosclerotic heart disease of native coronary artery without angina pectoris; I50.9 Heart failure, unspecified; I25.2 Old myocardial infarction; F15.90 Other stimulant use, unspecified, uncomplicated; F11.90 Opioid use, unspecified, uncomplicated; Z86.718 Personal history of other venous thrombosis and embolism; Z86.711 Personal history of pulmonary embolism; Z98.890 Other specified postprocedural states; Z59.0 Homelessness; Z79.01 Long term (current) use of anticoagulants
CPT/HCPCS: 36415; 71045; 71275; 80053; 83880; 84484; 85007; 85025; 93005; 99285; Q9967

== ENCOUNTER 2021-09-10 19:39 | Emergency (ER) | payer MEDICAID ==
[~2021-09-10] VITALS: Ht 188 cm; Wt 106.8 kg
[2021-09-10] MEDS ORDERED: AMIT100T2 (20:00)
[2021-09-10] MEDS ORDERED: BUPR150T8 PO (20:00)
--- NOTE | 2021-09-10 22:30 | NUR ---
pt presents to the ed with c/o right groin pain on intensity of 5/10 x three days; the pt denies radiation of the pain, or other related symptoms; the pt is a/o, nad, skin w/d.
[2021-09-10 23:13] VITALS: BP 126/84
== END 2021-09-10 23:14 | disposition home or self-care (01) ==
LOC: ER 19:39
DX: M79.652 Pain in left thigh (principal); R10.32 Left lower quadrant pain; I25.10 Atherosclerotic heart disease of native coronary artery without angina pectoris; I25.2 Old myocardial infarction; I50.9 Heart failure, unspecified; F15.90 Other stimulant use, unspecified, uncomplicated; F11.90 Opioid use, unspecified, uncomplicated; Z86.711 Personal history of pulmonary embolism; Z86.718 Personal history of other venous thrombosis and embolism; Z98.890 Other specified postprocedural states; Z59.00 Homelessness unspecified; Z79.899 Other long term (current) drug therapy
CPT/HCPCS: 93971; 99284

== ENCOUNTER 2021-09-29 05:01 | Inpatient (IN) | payer MEDICAID ==
[~2021-09-29] VITALS: Ht 188 cm; Wt 110.0 kg
[~2021-09-29 05:01] MED LIST changes: +AMIT100T2 PO; +BUPR150T8 PO
[2021-09-29 05:51] LABS: BASOPHILS % (AUTO) 0.3 % (0-1); EOSINOPHILS # (AUTO) 0.4 X10'3 (0-0.9); EOSINOPHILS % (AUTO) 3.7 % (0-6); HEMOGLOBIN 9.1 g/dl (14.0-17.9); LYMPHOCYTES # (AUTO) 2.1 X10'3 (1.1-4.8); LYMPHOCYTES % (AUTO) 17.5 % (21-51); MEAN CORPUSCULAR HEMOGLOBIN 26.4 PG (27.0-31.0); MEAN CORPUSCULAR HGB CONC 32.4 g/dL (33.0-36.5); MEAN CORPUSCULAR VOLUME 81.5 FL (78-98); MEAN PLATELET VOLUME 6.6 FL (7.4-10.4); NEUTROPHILS # (AUTO) 7.3 X10'3 (1.8-7.7); NEUTROPHILS % (AUTO) 61.5 % (42-75); PLATELET COUNT 449 X10'3 (140-440); RED BLOOD COUNT 3.43 X10'6 (4.70-6.10); WHITE BLOOD COUNT 11.8 X10'3 (4.5-11.0)
[2021-09-29 06:06] LABS: APTT 27 SECONDS (22-32); D-DIMER 0.75 MG/L FEU (0-0.50)
[2021-09-29 06:12] LABS: ALANINE AMINOTRANSFERASE 24 U/L (12-78); ALBUMIN 2.7 G/DL (3.4-5.0); ALBUMIN/GLOBULIN RATIO 0.6 (1.1-1.5); ALKALINE PHOSPHATASE 110 IU/L (46-116); ANION GAP 10 (8-16); ASPARTATE AMINO TRANSFERASE 26 U/L (10-37); BILIRUBIN,TOTAL 0.3 MG/DL (0.1-1.0); BLOOD UREA NITROGEN 11 MG/DL (7-18); BUN/CREATININE RATIO 12.1 (5.4-32.0); CALCIUM 8.3 MG/DL (8.5-10.1); CHLORIDE 106 MMOL/L (99-107); CREATININE 0.91 MG/DL (0.60-1.10); GLUCOSE 104 MG/DL (70-104); PLATELET ESTIMATE INCREASED; POTASSIUM 3.9 MMOL/L (3.5-5.1); SODIUM 139 MMOL/L (135-145); TOTAL CARBON DIOXIDE 23.4 MMOL/L (24-32); TOTAL CELLS COUNTED 100; eGFR 85 ML/MIN
[2021-09-29 06:13] LABS: ACANTHOCYTES 1+; ANISOCYTOSIS 1+; BURR CELLS FEW; ELLIPTOCYTES FEW; SCHISTOCYTES FEW
[2021-09-29 06:20] LABS: C-REACTIVE PROTEIN 10.58 MG/DL (0.0-0.5); MAGNESIUM 2.2 MG/DL (1.5-2.4)
[2021-09-29] MEDS ORDERED: normal saline 1000ml 1,000 ML IV ONE (06:45)
[2021-09-29] MEDS ORDERED: acetaminophen 1,000mg/100ml IV 100 ML IV ONE (06:45)
[2021-09-29] MEDS ORDERED: dexamethasone sod phosphate 10mg/ml inj IV STA (06:45)
[2021-09-29] MEDS ORDERED: normal saline 1000ML IV soln IVB ONE (06:45)
[2021-09-29] MEDS ORDERED: REMDESIVIR INJ 200 MG in normal saline 100ml IV soln 100 ML IV ONE (06:45)
--- NOTE | 2021-09-29 06:52 | NUR ---
notify dr bae that after turning off the o2 pt spo2 is 88-89% on ra .pt is negative for covid .as per md hold the [facility] rgt now.
[2021-09-29] MEDS ORDERED: cefTRIAXone 1g/NS 100ml IVPB 100 ML IV ONE (06:55)
[2021-09-29] MEDS ORDERED: iohexol 350MG/ML 100ml bottle IV ONE (07:48)
--- NOTE | 2021-09-29 08:02 | NUR ---
to ct scan .
--- NOTE | 2021-09-29 08:21 | NUR ---
pt is back from ct scan.
--- NOTE | 2021-09-29 09:13 | NUR ---
PATIENT IN THE ROOM AWAKE,NO REPORTED DISCOMFORT.
[2021-09-29] MEDS ORDERED: furosemide 40mg/4ml inj IV ONE (09:20)
[2021-09-29] MEDS ORDERED: ondansetron/PF 4mg/2ml inj IV PRN (09:20)
[2021-09-29] MEDS ORDERED: acetaminophen 325mg tablet PO PRN ×2 (09:20)
[2021-09-29] MEDS ORDERED: HYDROcodone/acetaminophen 5mg/325mg tablet PO PRN (09:20)
[2021-09-29] MEDS ORDERED: potassium Cl 20 mEq SR tablet PO PRN ×2 (09:20)
[2021-09-29] MEDS ORDERED: methylPREDNISolone sod succ 125mg/2ml vial IV ONE (09:20)
[2021-09-29] MEDS ORDERED: magnesium 2GM in 50ml NS 50 ML IV PRN (09:20)
[2021-09-29] MEDS ORDERED: naloxone 0.4 mg/ml inj IV PRN (09:20)
[2021-09-29] MEDS ORDERED: mag hydrox/Alum hydrox/simeth 30ml oral suspension PO PRN (09:20)
[2021-09-29] MEDS ORDERED: metoclopramide 5 mg/ml inj IV PRN (09:20)
[2021-09-29] MEDS ORDERED: magnesium 4gm in 100ml NS 100 ML IV PRN (09:20)
[2021-09-29] MEDS ORDERED: ipratropium/albuterol 3ml nebule NEB PRN (09:20)
[2021-09-29] MEDS ORDERED: acetaminophen 650mg rectal suppository RC PRN (09:20)
[2021-09-29] MEDS ORDERED: azithromycin 250mg tablet PO ONE (09:20)
[2021-09-29] MEDS ORDERED: ondansetron 4mg rapidly disintigrating tab PO PRN (09:20)
[2021-09-29] MEDS ORDERED: bisacodyl 10mg suppository rectal RC PRN (09:20)
[2021-09-29] MEDS ORDERED: magnesium Cl slow-release 64mg tablet PO PRN (09:20)
[2021-09-29] MEDS ORDERED: PERFLUTREN PROTEIN-A MICROSPHR (Optison) 0.22 MG/ML 3ML VIAL IV ONE (09:20)
[2021-09-29] MEDS ORDERED: potassium CL 10mEq/100ml bag 100 ML IV PRN (09:20)
[2021-09-29] MEDS ORDERED: magnesium hydroxide 30ml (MOM) UD suspension PO PRN (09:20)
[2021-09-29] MEDS: ipratropium/albuterol 3ml nebule NEB SCH ×3 (10:17→23:45)
--- NOTE | 2021-09-29 10:30 | NUR ---
clarify the order of lasix dose with dr rangel ,pt pro bnp is 936 .pt bp is 105/66,as per md instead of lasix 40 mg iv once give 20 mg iv once .will follow the orders.
[2021-09-29] MEDS ORDERED: furosemide 20 MG/2 ML vial IV ONE (10:35)
[2021-09-29] MEDS: nicotine 14mg patch - 24hr TD SCH (10:44)
[2021-09-29] MEDS ORDERED: DIPH-1055 PO (11:31)
[2021-09-29] MEDS ORDERED: APIX5TAB3 PO (11:31)
--- NOTE | 2021-09-29 13:50 | NUR ---
pt stated that he takes methadone 90 mg tab fro [facility] ,contacted pharmacy ad spoke to bettina and s per bettina pharmacist he will contact the clinic and get it verified by hospitalist.
[2021-09-29] MEDS ORDERED: NOTE (13:57)
[2021-09-29] MEDS ORDERED: DOL10T PO (13:59)
--- NOTE | 2021-09-29 14:02 | NUR ---
paged dr rangel for welbutrin request as pt take welbutrin 150 mg twice a day.
--- NOTE | 2021-09-29 14:16 | NUR ---
spoke to dr claire carter to give welbutrin 150 mg po bid .md howell o give 1 dose rgt now ,spoke to bettina in pharmacy to put the orders for welbutrin 150 mg po once.
[2021-09-29] MEDS: methylPREDNISolone sod succ 125mg/2ml vial IV SCH ×2 (14:22→21:00)
[2021-09-29] MEDS: buPROPion SR 150mg tablet PO SCH ×2 (14:22→21:00)
[2021-09-29] MEDS: methadone 10mg tablet PO SCH (16:20)
--- NOTE | 2021-09-29 17:21 | NUR ---
admission report sbar to tapan miles.discussed the plan of care.no further ques.
[2021-09-29 18:00] VITALS: BP_SYST 105
--- NOTE | 2021-09-29 18:30 | NUR ---
Patient in room U 3023. I have received report from Lindsay ZURITA and had the opportunity to ask questions and assume patient care. Addendum: 09/30/21 at 0655 by Olga Slater RN Amended: Links added.
[2021-09-29] MEDS: K and/or MAG REPLACEMENT MC SCH (20:00)
[2021-09-29] MEDS ORDERED: buPROPion SR 150mg tablet PO SCH (20:00)
[2021-09-29] MEDS ORDERED: temazepam 15mg capsule PO PRN (21:00)
[2021-09-29] MEDS: diphenhydrAMINE 25mg capsule PO SCH (21:01)
[2021-09-29] MEDS: apixaban 5mg tablet PO SCH (21:01)
[2021-09-29 22:00] VITALS: BP 107/67
--- NOTE | 2021-09-29 23:45 | NUR ---
Pt. awake with c/o SOB on 2 l via NC sating at 90%. Sat pt. up in high fowlers position and encouraged pt. to breath through the nose and exhale through the mouth slowly; pt. able to follow direction as directed-sats increased to 94% at this time. Notified RT. 2355 RT at bedside administering breathing treatment at this time. Pt. appear relaxed and denies further c/o SOB at this time. Will continue monitoring. Addendum: 09/30/21 at 0007 by Olga Slater RN Amended: Links added.
[2021-09-30 02:00] VITALS: BP 105/64
[2021-09-30] MEDS: methylPREDNISolone sod succ 125mg/2ml vial IV SCH ×4 (02:28→20:49)
[2021-09-30] MEDS: ipratropium/albuterol 3ml nebule NEB SCH ×7 (03:46→23:20)
[2021-09-30 06:00] VITALS: BP 101/55
--- NOTE | 2021-09-30 06:15 | NUR ---
Problems reprioritized. Patient report given, questions answered & plan of care reviewed with Jaqui ZURITA. Addendum: 09/30/21 at 0656 by Olga Slater RN Amended: Links added.
[2021-09-30 06:45] LABS: BASOPHILS % (AUTO) 0 % (0-1); EOSINOPHILS % (AUTO) 0 % (0-6); HEMATOCRIT 26.4 % (42.0-52.0); HEMOGLOBIN 8.8 g/dl (14.0-17.9); LYMPHOCYTES # (AUTO) 1.1 X10'3 (1.1-4.8); LYMPHOCYTES % (AUTO) 9.1 % (21-51); MEAN CORPUSCULAR HEMOGLOBIN 27.1 PG (27.0-31.0); MEAN CORPUSCULAR HGB CONC 33.2 g/dL (33.0-36.5); MEAN CORPUSCULAR VOLUME 81.8 FL (78-98); MEAN PLATELET VOLUME 6.8 FL (7.4-10.4); MONOCYTES # (AUTO) 0.6 X10'3 (0-0.9); MONOCYTES % (AUTO) 4.9 % (2-12); NEUTROPHILS # (AUTO) 10.7 X10'3 (1.8-7.7); PLATELET COUNT 468 X10'3 (140-440); RED BLOOD COUNT 3.23 X10'6 (4.70-6.10); RED CELL DISTRIBUTION WIDTH 17.3 % (11.5-14.5); WHITE BLOOD COUNT 12.4 X10'3 (4.5-11.0)
[2021-09-30 06:55] LABS: ALANINE AMINOTRANSFERASE 23 U/L (12-78); ALBUMIN 2.3 G/DL (3.4-5.0); ALBUMIN/GLOBULIN RATIO 0.5 (1.1-1.5); ALKALINE PHOSPHATASE 106 IU/L (46-116); ANION GAP 12 (8-16); ASPARTATE AMINO TRANSFERASE 26 U/L (10-37); BILIRUBIN,TOTAL 0.2 MG/DL (0.1-1.0); BLOOD UREA NITROGEN 18 MG/DL (7-18); BUN/CREATININE RATIO 18.8 (5.4-32.0); CALCIUM 8.6 MG/DL (8.5-10.1); CHLORIDE 102 MMOL/L (99-107); CREATININE 0.96 MG/DL (0.60-1.10); GLUCOSE 141 MG/DL (70-104); POTASSIUM 3.7 MMOL/L (3.5-5.1); SODIUM 136 MMOL/L (135-145); TOTAL CARBON DIOXIDE 21.7 MMOL/L (24-32); TOTAL PROTEIN 6.7 G/DL (6.4-8.2); eGFR 80 ML/MIN
[2021-09-30] MEDS ORDERED: amitriptyline 50mg tablet PO SCH (08:00)
[2021-09-30] MEDS: cefTRIAXone 1g/NS 100ml IVPB 100 ML IV SCH (08:00)
[2021-09-30] MEDS: nicotine 14mg patch - 24hr TD SCH (08:00)
[2021-09-30] MEDS: K and/or MAG REPLACEMENT MC SCH ×2 (08:00→20:00)
--- NOTE | 2021-09-30 08:19 | NUR ---
RT paged for breathing treatment per patient request.
[2021-09-30] MEDS: methadone 10mg tablet PO SCH (08:47)
[2021-09-30] MEDS: azithromycin 250mg tablet PO SCH (08:47)
[2021-09-30] MEDS: buPROPion SR 150mg tablet PO SCH (08:48)
[2021-09-30] MEDS: apixaban 5mg tablet PO SCH ×2 (08:48→20:50)
[2021-09-30] MEDS: enoxaparin 40mg/0.4ml syringe SUBCUT SCH (08:49)
[2021-09-30 11:00] VITALS: BP 106/68
[2021-09-30] MEDS: furosemide 20 MG/2 ML vial IV SCH ×2 (12:17→20:49)
--- NOTE | 2021-09-30 12:39 | NUR ---
Spoke to Dr. Alaniz in person, informed him about patient's slightly elevated heart rate 100-113. Will continue to monitor.
[2021-09-30 15:00] VITALS: BP 105/53
--- NOTE | 2021-09-30 15:24 | NUR ---
Page Sent promotional table spacer PAGER ID: [phone] MESSAGE: [id number] . Patient states he is having an anxiety attack. Can I have a order for PRN Ativan? Tanvi / Jaqui [phone]
--- NOTE | 2021-09-30 15:36 | NUR ---
PAGER ID: [phone] MESSAGE: [id number]. Patient is requesting medication for anxiety, preferably his Wellbutrin that is not scheduled until later night. Jaqui ZURITA [phone]
--- NOTE | 2021-09-30 16:18 | NUR ---
[id number]. Can we please get breathing treatment, thank you Jaqui ZURITA [phone]
[2021-09-30] MEDS: buPROPion 75mg tablet PO SCH (16:34)
--- NOTE | 2021-09-30 18:24 | NUR ---
Problems reprioritized. Patient report given, questions answered & plan of care reviewed with Alberto ZURITA.
--- NOTE | 2021-09-30 18:25 | NUR ---
Patient in room U 3023. I have received report from PARMINDER Nails and had the opportunity to ask questions and assume patient care. Addendum: 10/01/21 at 0049 by Alberto Moran RN Amended: Links added.
--- NOTE | 2021-09-30 20:30 | NUR ---
Pt becomes very anxious with any activity, anxious if he sees o2 saturation drop in low 90's. enc pt slow deep breaths, o2 sat recovers quickly when pt back in bed. Addendum: 10/01/21 at 0058 by Alberto Moran RN Amended: Links added.
[2021-09-30 20:47] VITALS: BP 106/77
[2021-09-30] MEDS: diphenhydrAMINE 25mg capsule PO SCH (20:50)
[2021-09-30] MEDS: amitriptyline 50mg tablet PO SCH (20:50)
[2021-09-30] MEDS ORDERED: buPROPion 75mg tablet PO SCH (21:00)
[2021-09-30] MEDS: HYDROcodone/acetaminophen 10/325mg tab PO PRN (21:09)
[2021-09-30 22:30] VITALS: BP 108/70
--- NOTE | 2021-09-30 23:39 | NUR ---
sat 97% on 6l, Rt will tritiate o2 down to 5 if pt tolerates. Pt becomes very anxious when he sees o2 sat drop below 93%. Addendum: 09/30/21 at 2341 by Alberto Moran RN Amended: Links added.
[2021-10-01] MEDS: HYDROcodone/acetaminophen 10/325mg tab PO PRN ×3 (01:27→20:14)
[2021-10-01] MEDS: methylPREDNISolone sod succ 125mg/2ml vial IV SCH ×4 (01:27→20:07)
--- NOTE | 2021-10-01 01:40 | NUR ---
Pt states wants to speak with md before taking any vaccines. Addendum: 10/01/21 at 0140 by Alberto Moran RN Amended: Links added.
[2021-10-01 02:30] VITALS: BP 124/78
[2021-10-01 06:31] LABS: EOSINOPHILS % (AUTO) 0 % (0-6); HEMOGLOBIN 8.3 g/dl (14.0-17.9); LYMPHOCYTES # (AUTO) 1.4 X10'3 (1.1-4.8); MEAN CORPUSCULAR HEMOGLOBIN 26.4 PG (27.0-31.0)
[2021-10-01 06:33] LABS: BASOPHILS % (AUTO) 0 % (0-1); HEMATOCRIT 25.8 % (42.0-52.0); LYMPHOCYTES % (AUTO) 8.5 % (21-51); MEAN CORPUSCULAR HGB CONC 32.3 g/dL (33.0-36.5); MEAN CORPUSCULAR VOLUME 81.6 FL (78-98); MEAN PLATELET VOLUME 6.7 FL (7.4-10.4); MONOCYTES # (AUTO) 0.9 X10'3 (0-0.9); MONOCYTES % (AUTO) 5.6 % (2-12); NEUTROPHILS % (AUTO) 85.9 % (42-75); PLATELET COUNT 504 X10'3 (140-440); RED BLOOD COUNT 3.16 X10'6 (4.70-6.10); RED CELL DISTRIBUTION WIDTH 17.4 % (11.5-14.5); WHITE BLOOD COUNT 16.3 X10'3 (4.5-11.0)
--- NOTE | 2021-10-01 06:34 | NUR ---
Problems reprioritized. Patient report given, questions answered & plan of care reviewed with PARMINDER SCHAEFER. Addendum: 10/01/21 at 0634 by Alberto Moran RN Amended: Links added.
[2021-10-01 06:52] VITALS: BP 104/63
--- NOTE | 2021-10-01 06:58 | NUR ---
Patient in room PCU 3023. I have received report from Delaney ZURITA and had the opportunity to ask questions and assume patient care.
[2021-10-01 07:03] LABS: ALANINE AMINOTRANSFERASE 30 U/L (12-78); ALBUMIN 2.5 G/DL (3.4-5.0); ALBUMIN/GLOBULIN RATIO 0.6 (1.1-1.5); ALKALINE PHOSPHATASE 104 IU/L (46-116); ANION GAP 6 (8-16); ASPARTATE AMINO TRANSFERASE 26 U/L (10-37); BILIRUBIN,TOTAL 0.2 MG/DL (0.1-1.0); BLOOD UREA NITROGEN 27 MG/DL (7-18); BUN/CREATININE RATIO 27.6 (5.4-32.0); CALCIUM 8.4 MG/DL (8.5-10.1); CHLORIDE 106 MMOL/L (99-107); CREATININE 0.98 MG/DL (0.60-1.10); GLUCOSE 125 MG/DL (70-104); POTASSIUM 4.3 MMOL/L (3.5-5.1); SODIUM 138 MMOL/L (135-145); TOTAL PROTEIN 6.7 G/DL (6.4-8.2); eGFR 78 ML/MIN
[2021-10-01] MEDS: K and/or MAG REPLACEMENT MC SCH ×2 (08:00→20:00)
[2021-10-01] MEDS: nicotine 14mg patch - 24hr TD SCH (08:00)
[2021-10-01] MEDS: ipratropium/albuterol 3ml nebule NEB SCH ×5 (08:07→23:29)
[2021-10-01] MEDS: azithromycin 250mg tablet PO SCH (09:10)
[2021-10-01] MEDS: apixaban 5mg tablet PO SCH ×2 (09:11→20:08)
[2021-10-01] MEDS: cefTRIAXone 1g/NS 100ml IVPB 100 ML IV SCH (09:13)
[2021-10-01] MEDS: buPROPion SR 150mg tablet PO SCH (09:21)
[2021-10-01] MEDS: methadone 10mg tablet PO SCH (09:23)
[2021-10-01] MEDS: enoxaparin 40mg/0.4ml syringe SUBCUT SCH (09:23)
[2021-10-01 11:59] VITALS: BP 103/70
[2021-10-01 16:28] VITALS: BP 103/63
[2021-10-01 18:00] VITALS: BP 103/69
--- NOTE | 2021-10-01 18:19 | NUR ---
Problems reprioritized. Patient report given, questions answered & plan of care reviewed with Nadia ZURITA.
[2021-10-01] MEDS: furosemide 20 MG/2 ML vial IV SCH (20:00)
[2021-10-01] MEDS: guaiFENesin ER 600mg tablet PO SCH (20:08)
[2021-10-01] MEDS: diphenhydrAMINE 25mg capsule PO SCH (20:13)
[2021-10-01] MEDS: buPROPion 75mg tablet PO SCH (20:14)
[2021-10-01] MEDS: amitriptyline 50mg tablet PO SCH (20:14)
[2021-10-01 22:00] VITALS: BP 106/61
[2021-10-02 02:00] VITALS: BP 112/64
[2021-10-02] MEDS: HYDROcodone/acetaminophen 10/325mg tab PO PRN ×2 (03:18→11:44)
[2021-10-02] MEDS: methylPREDNISolone sod succ 125mg/2ml vial IV SCH ×3 (03:18→14:20)
[2021-10-02 06:00] VITALS: BP 121/67
--- NOTE | 2021-10-02 06:30 | NUR ---
Patient in room PCU 3023. I have received report from PARMINDER Zuniga and had the opportunity to ask questions and assume patient care.
--- NOTE | 2021-10-02 06:41 | NUR ---
Problems reprioritized. Patient report given, questions answered & plan of care reviewed with PARMINDER Espinal.
[2021-10-02 07:04] LABS: BASOPHILS % (AUTO) 0.2 % (0-1); EOSINOPHILS % (AUTO) 0 % (0-6); HEMATOCRIT 26.6 % (42.0-52.0); HEMOGLOBIN 8.5 g/dl (14.0-17.9); LYMPHOCYTES # (AUTO) 1.3 X10'3 (1.1-4.8); LYMPHOCYTES % (AUTO) 9.9 % (21-51); MEAN CORPUSCULAR HEMOGLOBIN 26.1 PG (27.0-31.0); MEAN CORPUSCULAR VOLUME 81.5 FL (78-98); MEAN PLATELET VOLUME 6.8 FL (7.4-10.4); MONOCYTES # (AUTO) 0.7 X10'3 (0-0.9); MONOCYTES % (AUTO) 5.6 % (2-12); NEUTROPHILS % (AUTO) 84.3 % (42-75); PLATELET COUNT 516 X10'3 (140-440); RED BLOOD COUNT 3.26 X10'6 (4.70-6.10); RED CELL DISTRIBUTION WIDTH 17.3 % (11.5-14.5)
[2021-10-02 07:18] LABS: ALANINE AMINOTRANSFERASE 36 U/L (12-78); ALBUMIN 2.5 G/DL (3.4-5.0); ALBUMIN/GLOBULIN RATIO 0.6 (1.1-1.5); ALKALINE PHOSPHATASE 105 IU/L (46-116); ANION GAP 7 (8-16); ASPARTATE AMINO TRANSFERASE 26 U/L (10-37); BILIRUBIN,TOTAL 0.2 MG/DL (0.1-1.0); BLOOD UREA NITROGEN 27 MG/DL (7-18); BUN/CREATININE RATIO 25.7 (5.4-32.0); CALCIUM 8.4 MG/DL (8.5-10.1); CHLORIDE 110 MMOL/L (99-107); CREATININE 1.05 MG/DL (0.60-1.10); GLUCOSE 122 MG/DL (70-104); POTASSIUM 4.5 MMOL/L (3.5-5.1); SODIUM 141 MMOL/L (135-145); TOTAL CARBON DIOXIDE 24.1 MMOL/L (24-32); TOTAL PROTEIN 6.7 G/DL (6.4-8.2); eGFR 72 ML/MIN
[2021-10-02] MEDS: ipratropium/albuterol 3ml nebule NEB SCH ×3 (07:38→15:00)
[2021-10-02 07:57] LABS: NUCLEATED RED BLOOD CELLS 5 /100WBC (0-0); TOTAL CELLS COUNTED 100
[2021-10-02 07:58] LABS: ANISOCYTOSIS 1+; ELLIPTOCYTES 2+; PLATELET ESTIMATE INCREASED
[2021-10-02 07:59] LABS: ACANTHOCYTES 2+; BURR CELLS FEW; SCHISTOCYTES FEW
[2021-10-02] MEDS: K and/or MAG REPLACEMENT MC SCH (08:00)
[2021-10-02] MEDS: guaiFENesin ER 600mg tablet PO SCH (09:54)
[2021-10-02] MEDS: apixaban 5mg tablet PO SCH (09:54)
[2021-10-02] MEDS: azithromycin 250mg tablet PO SCH (09:54)
[2021-10-02] MEDS: methadone 10mg tablet PO SCH (09:55)
[2021-10-02] MEDS: buPROPion SR 150mg tablet PO SCH (09:56)
[2021-10-02] MEDS: nicotine 14mg patch - 24hr TD SCH ×2 (09:57→09:59)
[2021-10-02] MEDS: cefTRIAXone 1g/NS 100ml IVPB 100 ML IV SCH (10:01)
[2021-10-02] MEDS: furosemide 20 MG/2 ML vial IV SCH (10:03)
[2021-10-02 11:00] VITALS: BP 113/77
[2021-10-02] MEDS ORDERED: POTA10TA37 PO (11:05)
[2021-10-02] MEDS ORDERED: LEVO500T90 PO (11:05)
[2021-10-02] MEDS ORDERED: PRED20TA PO (11:05)
[2021-10-02] MEDS ORDERED: FURO-150 PO (11:05)
[2021-10-02] MEDS ORDERED: ALBU8.5H17 IH (11:07)
--- NOTE | 2021-10-02 11:45 | NUR ---
O2 Sat at rest on room air:94___% If below 89%: Recovery O2 Sat at rest on __0_LPM:_95__%: via__Room air (mask/nasal cannula, etc..) No further documentation is necessary. If O2 Sat did not drop below 89% on room air,ambulate patient on room air. O2 Sat while ambulating on room air:_89__% Recovery O2 Sat while ambulating on _4L__LPM:_94__% No further documentation is necessary. If patient does not drop below 89% while ambulating, he/she does not qualify for home O2.
--- NOTE | 2021-10-02 12:25 | NUR ---
O2 Sat at rest on room air:_94_% If below 89%: Recovery O2 Sat at rest on _0_LPM:_95_%:___% via____room air (mask/nasal cannula, etc..) No further documentation is necessary. If O2 Sat did not drop below 89% on room air,ambulate patient on room air. O2 Sat while ambulating on room air:__83_% Recovery O2 Sat while ambulating on __4_LPM:_95_% No further documentation is necessary. If patient does not drop below 89% while ambulating, he/she does not qualify for home O2.
[2021-10-02 15:00] VITALS: BP 114/75
--- NOTE | 2021-10-02 17:15 | NUR ---
Patient is stable for discharge per Dr Alaniz orders. All discharge instructions reviewed with patient and all questions answered. New prescriptions sent electronically. Patient medications retrieved from pharmacy. scrap iron loader discontinued. Belongings collected and sent with patient. Mode of transportation was taxi and wheeled to lobby.
--- NOTE | 2021-10-02 17:16 | NUR ---
Orientation documentation: I have reviewed and agree with all interventions, assessments performed and documented by LUCIANO Grey.
[2021-10-03] MEDS ORDERED: predniSONE 20 mg tablet PO SCH (08:00)
== END 2021-10-02 17:08 | disposition home or self-care (01) | DRG 139 ==
LOC: ER 05:02 → ED HOLD 09:30 → EDBEDREQ 17:06 → PCU 3S 18:03
PROVIDERS: ADMIT Family Medicine; ATTEND Family Medicine
PROC: B32T1ZZ Computerized Tomography (CT Scan) of Left Pulmonary Artery using Low Osmolar Contrast (ICD-10-PCS; principal; 2021-09-29)
PROC: B3201ZZ Computerized Tomography (CT Scan) of Thoracic Aorta using Low Osmolar Contrast (ICD-10-PCS; 2021-09-29)
PROC: B32S1ZZ Computerized Tomography (CT Scan) of Right Pulmonary Artery using Low Osmolar Contrast (ICD-10-PCS; 2021-09-29)
DX: J18.9 Pneumonia, unspecified organism (principal); J96.01 Acute respiratory failure with hypoxia; F41.1 Generalized anxiety disorder; I25.10 Atherosclerotic heart disease of native coronary artery without angina pectoris; J44.0 Chronic obstructive pulmonary disease with (acute) lower respiratory infection; F17.210 Nicotine dependence, cigarettes, uncomplicated; T38.0X5A Adverse effect of glucocorticoids and synthetic analogues, initial encounter; Z20.822 Contact with and (suspected) exposure to COVID-19; E05.00 Thyrotoxicosis with diffuse goiter without thyrotoxic crisis or storm; I50.30 Unspecified diastolic (congestive) heart failure; Y92.230 Patient room in hospital as the place of occurrence of the external cause; F11.90 Opioid use, unspecified, uncomplicated; F15.90 Other stimulant use, unspecified, uncomplicated; F32.A Depression, unspecified; I25.2 Old myocardial infarction; Z86.711 Personal history of pulmonary embolism; Z86.718 Personal history of other venous thrombosis and embolism; Z79.01 Long term (current) use of anticoagulants; Z90.81 Acquired absence of spleen; Z59.00 Homelessness unspecified; Z90.49 Acquired absence of other specified parts of digestive tract
CPT/HCPCS: 36415; 71045; 71275; 80053; 83605; 83735; 83880; 84132; 84145; 84484; 85007; 85025; 85379; 85610; 85730; 86140; 87040; 87635; 93005; 93306; 94640; 94667; 94668; 94760; 96365; 96367; 99285; C9803; G0378; J0131; J0696; J1650; J1940; J2930; J7030; Q0163; Q9967

== ENCOUNTER 2021-12-11 21:01 | Emergency (ER) | payer MEDICAID ==
[~2021-12-11] VITALS: Ht 188 cm; Wt 110.0 kg
[~2021-12-11 21:01] MED LIST changes: +ALBU8.5H17 IH; +DIPH-1055 PO; +DOL10T PO; +POTA10TA37 PO
[2021-12-12] MEDS ORDERED: hydrOXYzine 25 MG tablet PO ONE (02:05)
[2021-12-12] MEDS ORDERED: furosemide 40mg/4ml inj IV ONE (02:05)
[2021-12-12 02:34] LABS: BASOPHILS # (AUTO) 0.1 X10'3 (0-0.2); BASOPHILS % (AUTO) 0.6 % (0-1); EOSINOPHILS # (AUTO) 0.8 X10'3 (0-0.9); EOSINOPHILS % (AUTO) 8.1 % (0-6); HEMATOCRIT 29.7 % (42.0-52.0); HEMOGLOBIN 9.4 g/dl (14.0-17.9); LYMPHOCYTES # (AUTO) 3.5 X10'3 (1.1-4.8); MEAN CORPUSCULAR HGB CONC 31.8 g/dL (33.0-36.5); MEAN CORPUSCULAR VOLUME 78.8 FL (78-98); MEAN PLATELET VOLUME 6.3 FL (7.4-10.4); MONOCYTES # (AUTO) 1.6 X10'3 (0-0.9); MONOCYTES % (AUTO) 16.1 % (2-12); NEUTROPHILS % (AUTO) 40.2 % (42-75); PLATELET COUNT 537 X10'3 (140-440); RED BLOOD COUNT 3.77 X10'6 (4.70-6.10); RED CELL DISTRIBUTION WIDTH 17.9 % (11.5-14.5); WHITE BLOOD COUNT 9.9 X10'3 (4.5-11.0)
[2021-12-12 02:49] LABS: ALANINE AMINOTRANSFERASE 19 U/L (12-78); ALBUMIN 3.5 G/DL (3.4-5.0); ALBUMIN/GLOBULIN RATIO 0.8 (1.1-1.5); ALKALINE PHOSPHATASE 132 IU/L (46-116); ANION GAP 10 (8-16); ASPARTATE AMINO TRANSFERASE 22 U/L (10-37); BILIRUBIN,TOTAL 0.3 MG/DL (0.1-1.0); BLOOD UREA NITROGEN 14 MG/DL (7-18); BUN/CREATININE RATIO 14.1 (5.4-32.0); CALCIUM 8.6 MG/DL (8.5-10.1); CHLORIDE 103 MMOL/L (99-107); CREATININE 0.99 MG/DL (0.60-1.10); GLUCOSE 93 MG/DL (70-104); POTASSIUM 4.1 MMOL/L (3.5-5.1); SODIUM 139 MMOL/L (135-145); TOTAL CARBON DIOXIDE 26.4 MMOL/L (24-32); TOTAL PROTEIN 7.7 G/DL (6.4-8.2); eGFR 77 ML/MIN
[2021-12-12 03:16] VITALS: BP 139/83
[2021-12-12 03:17] LABS: ANISOCYTOSIS 1+; PLATELET ESTIMATE INCREASED; TOTAL CELLS COUNTED 100
[2021-12-12 03:18] LABS: HYPOCHROMASIA 1+; MICROCYTOSIS 1+; POIKILOCYTOSIS 3+; SCHISTOCYTES 3+
[2021-12-12 03:19] LABS: ELLIPTOCYTES 1+
[2021-12-12 03:20] LABS: LARGE PLATELETS FEW
[2021-12-12 03:21] LABS: POLYCHROMASIA FEW
== END 2021-12-12 04:49 | disposition home or self-care (01) ==
LOC: ER 21:02
DX: R60.0 Localized edema (principal); I87.2 Venous insufficiency (chronic) (peripheral); I50.9 Heart failure, unspecified; F15.20 Other stimulant dependence, uncomplicated; Z59.00 Homelessness unspecified
CPT/HCPCS: 36415; 80053; 83880; 85007; 85025; 96374; 99283; J1940; Q0177

== ENCOUNTER 2022-07-20 21:31 | Emergency (ER) | payer MEDICAID ==
[~2022-07-20] VITALS: Ht 188 cm; Wt 104.5 kg
[~2022-07-20 21:31] MED LIST changes: +ALBU17AE26 IH; -ALBU8.5H17 IH; +ASCO500C18 PO; +BUPR-72 PO; -BUPR150T8 PO; -DOL10T PO; +METH-806 PO; +PANT40TA54 PO; +POTA-206 PO; -POTA10TA37 PO
[2022-07-20] MEDS ORDERED: morphine 4 MG/ML inj SYRINge IV ONE (22:55)
[2022-07-20] MEDS ORDERED: ondansetron/PF 4mg/2ml inj IV ONE (22:55)
[2022-07-20] MEDS ORDERED: ketorolac trometh. 30mg/ml inj. IV ONE (23:00)
[2022-07-20 23:02] LABS: HEMOGLOBIN 9.1 g/dl (14.0-17.9); MEAN PLATELET VOLUME 6.4 FL (7.4-10.4)
[2022-07-20 23:04] LABS: MEAN CORPUSCULAR HEMOGLOBIN 24.4 PG (27.0-31.0); MEAN CORPUSCULAR HGB CONC 32.6 g/dL (33.0-36.5); MEAN CORPUSCULAR VOLUME 74.7 FL (78-98); PLATELET COUNT 610 X10'3 (140-440); RED BLOOD COUNT 3.75 X10'6 (4.70-6.10); RED CELL DISTRIBUTION WIDTH 27.4 % (11.5-14.5); WHITE BLOOD COUNT 10.7 X10'3 (4.5-11.0)
[2022-07-20 23:27] LABS: ALANINE AMINOTRANSFERASE 20 U/L (12-78); ALBUMIN 2.6 G/DL (3.4-5.0); ALBUMIN/GLOBULIN RATIO 0.6 (1.1-1.5); ALKALINE PHOSPHATASE 89 IU/L (46-116); ANION GAP 3 (8-16); ASPARTATE AMINO TRANSFERASE 23 U/L (10-37); BILIRUBIN,TOTAL 0.2 MG/DL (0.1-1.0); BLOOD UREA NITROGEN 24 MG/DL (7-18); CALCIUM 8.4 MG/DL (8.5-10.1); CHLORIDE 105 MMOL/L (99-107); CREATININE 0.89 MG/DL (0.60-1.10); GLUCOSE 103 MG/DL (70-104); POTASSIUM 4.5 MMOL/L (3.5-5.1); SODIUM 136 MMOL/L (135-145); TOTAL CARBON DIOXIDE 28.3 MMOL/L (24-32); TOTAL PROTEIN 6.9 G/DL (6.4-8.2); eGFR 87 ML/MIN
[2022-07-20 23:41] LABS: ANISOCYTOSIS 3+; HYPOCHROMASIA 1+; MICROCYTOSIS 1+; PLATELET ESTIMATE INCREASED; TOTAL CELLS COUNTED 100
[2022-07-20 23:43] LABS: ACANTHOCYTES 1+; BURR CELLS 1+; ELLIPTOCYTES 1+; SCHISTOCYTES FEW; TARGET CELLS FEW
[2022-07-21] MEDS ORDERED: ketorolac trometh inj. 60 MG/2 ML VIAL IM ONE (01:50)
[2022-07-21] MEDS ORDERED: TRAM1TAB7 PO (03:16)
[2022-07-21 03:23] VITALS: BP 141/85
== END 2022-07-21 04:06 | disposition home or self-care (01) ==
LOC: ER 21:31
DX: S81.802A Unspecified open wound, left lower leg, initial encounter (principal); S81.801A Unspecified open wound, right lower leg, initial encounter; R60.9 Edema, unspecified; I73.9 Peripheral vascular disease, unspecified; J44.9 Chronic obstructive pulmonary disease, unspecified; X58.XXXA Exposure to other specified factors, initial encounter; Y93.89 Activity, other specified; Y92.89 Other specified places as the place of occurrence of the external cause; Y99.8 Other external cause status
CPT/HCPCS: 36415; 71045; 80053; 83880; 84484; 85007; 85025; 93005; 96372; 96374; 99285; A6223; J1885; A6253; A6446

== ENCOUNTER 2022-12-03 07:08 | Emergency (ER) | payer MEDICAID ==
[~2022-12-03] VITALS: Ht 188 cm; Wt 95.0 kg
[~2022-12-03 07:08] MED LIST changes: -ASCO500C18 PO; -BUPR-72 PO; +BUPR200T27 PO; +BUSP7.5T5 PO; +CIPR750T4 PO; +COLL30OI TP; +FERR324T3 PO; +FURO20TA4 PO; +GABA300C PO; +PANT-47 PO; -PANT40TA54 PO; -POTA-206 PO; +POTA10CA85 PO; +TRAM50TA2 PO
[2022-12-03] MEDS ORDERED: LIDOcaine 1% W/epiNEPHrine 1:100,000 20ml vial IJ ONE (07:40)
[2022-12-03] MEDS ORDERED: ketorolac trometh. 30mg/ml inj. IM ONE (07:40)
[2022-12-03] MEDS ORDERED: acetaminophen 325mg tablet PO ONE (07:40)
[2022-12-03] MEDS ORDERED: HYDROcodone/acetaminophen 10/325mg tab PO ONE (07:40)
[2022-12-03] MEDS ORDERED: morphine 4 MG/ML inj SYRINge IM ONE (07:45)
--- NOTE | 2022-12-03 08:16 | NUR ---
Dr. Nguyễn at bedside.
--- NOTE | 2022-12-03 08:54 | NUR ---
pt standing and using urine.
[2022-12-03 09:31] VITALS: BP 106/72
[2022-12-03] MEDS ORDERED: HYDR-3965 PO (10:17)
== END 2022-12-03 10:28 | disposition home or self-care (01) ==
LOC: ER 07:08
DX: S52.592A Other fractures of lower end of left radius, initial encounter for closed fracture (principal); I11.9 Hypertensive heart disease without heart failure; F15.10 Other stimulant abuse, uncomplicated; Z90.49 Acquired absence of other specified parts of digestive tract; Z79.899 Other long term (current) drug therapy; W18.39XA Other fall on same level, initial encounter; Y93.89 Activity, other specified; Y92.89 Other specified places as the place of occurrence of the external cause; Y99.8 Other external cause status
CPT/HCPCS: 25605; 73090; 73110; 96372; 99284; J1885; J2270; J7030; A4565; A6446; A6449

== ENCOUNTER 2022-12-04 13:20 | Emergency (ER) | payer MEDICAID ==
[~2022-12-04] VITALS: Ht 188 cm; Wt 90.9 kg
[~2022-12-04 13:20] MED LIST changes: +HYDR-3965 PO
[2022-12-04] MEDS ORDERED: naloxone 0.4 mg/ml inj IV ONE (13:45)
[2022-12-04] MEDS ORDERED: normal saline 1000ML IV soln IVB ONE ×2 (14:05→15:35)
[2022-12-04] MEDS ORDERED: naloxone 2mg/2ml inj IV ONE (14:15)
[2022-12-04 14:40] LABS: ALANINE AMINOTRANSFERASE 15 U/L (12-78); ALBUMIN 2.2 G/DL (3.4-5.0); ALBUMIN/GLOBULIN RATIO 0.5 (1.1-1.5); ALKALINE PHOSPHATASE 101 IU/L (46-116); ANION GAP 7 (8-16); ASPARTATE AMINO TRANSFERASE 26 U/L (10-37); BILIRUBIN,TOTAL 0.3 MG/DL (0.1-1.0); BLOOD UREA NITROGEN 23 MG/DL (7-18); BUN/CREATININE RATIO 23.2 (10.0-20.0); CHLORIDE 106 MMOL/L (99-107); CREATININE 0.99 MG/DL (0.60-1.10); ETHANOL < 0.010 GM/DL (0.0-0.010); GLUCOSE 88 MG/DL (70-104); POTASSIUM 3.8 MMOL/L (3.5-5.1); SODIUM 135 MMOL/L (135-145); TOTAL CARBON DIOXIDE 22.3 MMOL/L (24-32); TOTAL PROTEIN 6.3 G/DL (6.4-8.2); WHITE BLOOD COUNT 9.8 X10'3 (4.5-11.0); eGFR 77 ML/MIN
[2022-12-04 14:42] LABS: BASOPHILS # (AUTO) 0.2 X10'3 (0-0.2); BASOPHILS % (AUTO) 1.7 % (0-1); EOSINOPHILS # (AUTO) 0.6 X10'3 (0-0.9); EOSINOPHILS % (AUTO) 5.8 % (0-6); HEMATOCRIT 23.6 % (42.0-52.0); LYMPHOCYTES # (AUTO) 2.2 X10'3 (1.1-4.8); LYMPHOCYTES % (AUTO) 22.6 % (21-51); MEAN CORPUSCULAR HEMOGLOBIN 21.2 PG (27.0-31.0); MEAN CORPUSCULAR HGB CONC 29.9 g/dL (33.0-36.5); MEAN CORPUSCULAR VOLUME 70.8 FL (78-98); MEAN PLATELET VOLUME 6.5 FL (7.4-10.4); MONOCYTES # (AUTO) 1.6 X10'3 (0-0.9); MONOCYTES % (AUTO) 15.9 % (2-12); NEUTROPHILS # (AUTO) 5.3 X10'3 (1.8-7.7); PLATELET COUNT 590 X10'3 (140-440); RED BLOOD COUNT 3.33 X10'6 (4.70-6.10); RED CELL DISTRIBUTION WIDTH 27.2 % (11.5-14.5)
[2022-12-04 15:14] LABS: CLARITY,URINE SLIGHTLY CLOUDY (Clear); COLOR,URINE YELLOW (Yellow); GLUCOSE, URINE NEGATIVE (Neg); KETONES,URINE NEGATIVE (Neg); LEUKOCYTE ESTERASE ,URINE NEGATIVE (Neg); NITRITES, URINE NEGATIVE (Neg); OCCULT BLOOD,URINE NEGATIVE (Neg); PROTEIN,URINE NEGATIVE (Neg); UROBILINOGEN,URINE 0.2 E.U/dL (0.2-1.0)
[2022-12-04 15:15] LABS: UA COLLECTION TYPE CLN CATCH MIDSTREAM
[2022-12-04 15:16] LABS: NUCLEATED RED BLOOD CELLS 4 /100WBC (0-0); TOTAL CELLS COUNTED 100
[2022-12-04 15:18] LABS: ANISOCYTOSIS 3+; MICROCYTOSIS 1+; PLATELET ESTIMATE INCREASED; POLYCHROMASIA 1+
[2022-12-04 15:19] LABS: ACANTHOCYTES 1+; SCHISTOCYTES 1+
[2022-12-04 15:22] LABS: URINE AMPHETAMINE SCREEN NEGATIVE (Neg); URINE BARBITUATE SCREEN NEGATIVE (Neg); URINE BENZODIAZEPINES SCREEN NEGATIVE (Neg); URINE CANNABINOID SCREEN NEGATIVE (Neg); URINE COCAINE SCREEN NEGATIVE (Neg); URINE METHADONE SCREEN POSITIVE (Neg); URINE OPIATE SCREEN POSITIVE (Neg); URINE PHENCYCLIDINE SCREEN NEGATIVE (Neg)
[2022-12-04 15:58] LABS: HYALINE CASTS 0-3 /LPF (NEGATIVE); MUCUS STRANDS FEW /LPF (Neg); SQUAMOUS EPITHELIAL CELL,UR FEW /LPF (FEW)
[2022-12-04 15:59] LABS: RBC,URINE 0-2 /HPF (0-2); TRANSITIONAL EPI CELLS,URINE FEW /HPF
[2022-12-04 16:00] LABS: BACTERIA,URINE FEW /HPF (Neg); WBC,URINE 0-4 /HPF (0-4)
[2022-12-04 17:42] VITALS: BP 126/60
[2022-12-09] MEDS ORDERED: CEPH250T PO ×2 (17:13)
[2022-12-09] MEDS ORDERED: DOXY100C43 PO ×2 (17:13)
[2022-12-09] MEDS ORDERED: OXYC-145 PO ×2 (17:14)
[2022-12-19] MEDS ORDERED: HYDR-3972 PO (12:57)
== END 2022-12-04 17:47 | disposition home or self-care (01) ==
LOC: ER 13:20
DX: T40.3X1A Poisoning by methadone, accidental (unintentional), initial encounter (principal); D64.9 Anemia, unspecified; R41.0 Disorientation, unspecified; K92.2 Gastrointestinal hemorrhage, unspecified; D68.9 Coagulation defect, unspecified; M25.511 Pain in right shoulder; I50.9 Heart failure, unspecified; F15.20 Other stimulant dependence, uncomplicated; Z98.890 Other specified postprocedural states; Z90.49 Acquired absence of other specified parts of digestive tract; Z59.00 Homelessness unspecified; Y92.89 Other specified places as the place of occurrence of the external cause
CPT/HCPCS: 36415; 70450; 71045; 80053; 80305; 80320; 81001; 82948; 83605; 83735; 84145; 85007; 85025; 87040; 93005; 96374; 99285; J2310; J7030

== ENCOUNTER 2022-12-16 18:50 | Inpatient (IN) | payer MEDICAID ==
[~2022-12-16] VITALS: Ht 188 cm; Wt 90.9 kg
[~2022-12-16 18:50] MED LIST changes: +CEPH250T PO; +DOXY100C43 PO; +OXYC-145 PO
[2022-12-16] MEDS ORDERED: morphine 4 MG/ML inj SYRINge IV ONE (19:35)
[2022-12-16] MEDS ORDERED: ondansetron/PF 4mg/2ml inj IV ONE (19:38)
[2022-12-16 19:42] LABS: EOSINOPHILS # (AUTO) 0.1 X10'3 (0-0.9); HEMOGLOBIN 7.2 g/dl (14.0-17.9); MEAN PLATELET VOLUME 6.8 FL (7.4-10.4); RED BLOOD COUNT 3.47 X10'6 (4.70-6.10)
[2022-12-16 19:44] LABS: BASOPHILS # (AUTO) 0.1 X10'3 (0-0.2); BASOPHILS % (AUTO) 0.9 % (0-1); EOSINOPHILS % (AUTO) 0.8 % (0-6); HEMATOCRIT 23.7 % (42.0-52.0); LYMPHOCYTES # (AUTO) 0.5 X10'3 (1.1-4.8); LYMPHOCYTES % (AUTO) 3.8 % (21-51); MEAN CORPUSCULAR HEMOGLOBIN 20.7 PG (27.0-31.0); MEAN CORPUSCULAR HGB CONC 30.2 g/dL (33.0-36.5); MEAN CORPUSCULAR VOLUME 68.3 FL (78-98); MONOCYTES % (AUTO) 16.8 % (2-12); NEUTROPHILS # (AUTO) 9.3 X10'3 (1.8-7.7); NEUTROPHILS % (AUTO) 77.7 % (42-75); PLATELET COUNT 636 X10'3 (140-440); RED CELL DISTRIBUTION WIDTH 26.3 % (11.5-14.5); WHITE BLOOD COUNT 11.9 X10'3 (4.5-11.0)
[2022-12-16 19:50] LABS: ALANINE AMINOTRANSFERASE 12 U/L (12-78); ALBUMIN/GLOBULIN RATIO 0.4 (1.1-1.5); ALKALINE PHOSPHATASE 110 IU/L (46-116); ANION GAP 13 (8-16); ASPARTATE AMINO TRANSFERASE 17 U/L (10-37); BILIRUBIN,TOTAL 0.3 MG/DL (0.1-1.0); BLOOD UREA NITROGEN 27 MG/DL (7-18); BUN/CREATININE RATIO 26.7 (10.0-20.0); CALCIUM 9.1 MG/DL (8.5-10.1); CHLORIDE 100 MMOL/L (99-107); CREATININE 1.01 MG/DL (0.60-1.10); GLUCOSE 104 MG/DL (70-104); SODIUM 137 MMOL/L (135-145); TOTAL CARBON DIOXIDE 24.2 MMOL/L (24-32); TOTAL PROTEIN 7.6 G/DL (6.4-8.2); eGFR 75 ML/MIN
[2022-12-16 19:52] LABS: POTASSIUM 2.9 MMOL/L (3.5-5.1)
[2022-12-16 20:35] LABS: LARGE PLATELETS FEW; PLATELET ESTIMATE INCREASED
[2022-12-16] MEDS ORDERED: potassium Cl 40MEQ/1/2NS 520ml 520 ML IV ONE (20:35)
[2022-12-16 20:36] LABS: ANISOCYTOSIS 3+; HYPOCHROMASIA 1+; MICROCYTOSIS 2+
[2022-12-16 20:38] LABS: ACANTHOCYTES FEW; SCHISTOCYTES FEW
[2022-12-16 20:39] LABS: TARGET CELLS FEW
[2022-12-16 20:54] LABS: APTT 29 SECONDS (22-32)
[2022-12-16 21:06] LABS: NUCLEATED RED BLOOD CELLS 2 /100WBC (0-0); TOTAL CELLS COUNTED 100
[2022-12-16] MEDS ORDERED: potassium Cl 20 mEq SR tablet PO PRN (22:35)
[2022-12-16] MEDS ORDERED: ondansetron/PF 4mg/2ml inj IV PRN (22:35)
[2022-12-16] MEDS ORDERED: magnesium 4gm in 100ml NS 100 ML IV PRN (22:35)
[2022-12-16] MEDS ORDERED: acetaminophen 325mg tablet PO PRN (22:35)
[2022-12-16] MEDS ORDERED: magnesium Cl slow-release 64mg tablet PO PRN (22:35)
[2022-12-16] MEDS ORDERED: magnesium 2GM in 50ml NS 50 ML IV PRN (22:35)
[2022-12-16] MEDS ORDERED: morphine 2 MG/ML inj. syringe IV ONE (22:35)
[2022-12-16] MEDS ORDERED: magnesium hydroxide 30ml (MOM) UD suspension PO PRN (22:35)
[2022-12-16] MEDS ORDERED: potassium Cl 40MEQ/1/2NS 520ml 520 ML IV PRN (22:35)
[2022-12-16] MEDS ORDERED: DOXY-457 PO (23:11)
[2022-12-16] MEDS ORDERED: IBUP-1986 PO (23:11)
[2022-12-16] MEDS ORDERED: CEPH250C PO (23:11)
[2022-12-16] MEDS ORDERED: HYDR-3686 PO (23:11)
[2022-12-16] MEDS ORDERED: PER5325T PO (23:11)
[2022-12-16] MEDS: HYDROcodone/acetaminophen 10/325mg tab PO PRN (23:31)
[2022-12-16 23:34] LABS: CLARITY,URINE CLEAR (Clear); COLOR,URINE YELLOW (Yellow); GLUCOSE, URINE NEGATIVE (Neg); KETONES,URINE TRACE mg/dl (Neg); LEUKOCYTE ESTERASE ,URINE NEGATIVE (Neg); NITRITES, URINE NEGATIVE (Neg); OCCULT BLOOD,URINE NEGATIVE (Neg); PROTEIN,URINE TRACE mg/dl (Neg)
[2022-12-16 23:39] LABS: UA COLLECTION TYPE CLN CATCH MIDSTREAM
[2022-12-16 23:40] LABS: BACTERIA,URINE NONE SEEN /HPF (Neg); RBC,URINE 0-2 /HPF (0-2); SQUAMOUS EPITHELIAL CELL,UR NONE SEEN /LPF (FEW); WBC,URINE 0-4 /HPF (0-4)
[2022-12-16 23:50] LABS: URINE AMPHETAMINE SCREEN NEGATIVE (Neg); URINE BARBITUATE SCREEN NEGATIVE (Neg); URINE BENZODIAZEPINES SCREEN NEGATIVE (Neg); URINE CANNABINOID SCREEN POSITIVE (Neg); URINE COCAINE SCREEN NEGATIVE (Neg); URINE METHADONE SCREEN POSITIVE (Neg); URINE OPIATE SCREEN POSITIVE (Neg); URINE PHENCYCLIDINE SCREEN NEGATIVE (Neg)
[2022-12-17] VITALS (9 sets, daily range): BP systolic 96–121; BP diastolic 55–89
[2022-12-17] MEDS: potassium Cl 20mEq in NS 1,000 ML IV SCH ×3 (02:09→18:35)
[2022-12-17] MEDS: HYDROcodone/acetaminophen 10/325mg tab PO PRN ×5 (03:23→21:42)
[2022-12-17 06:54] LABS: MEAN CORPUSCULAR HEMOGLOBIN 21.2 PG (27.0-31.0); MEAN PLATELET VOLUME 6.4 FL (7.4-10.4)
--- NOTE | 2022-12-17 06:56 | NUR ---
Problems reprioritized. Patient report given, questions answered & plan of care reviewed with JENNA. Addendum: 12/17/22 at 0657 by Evan Dill RN Amended: Links added.
[2022-12-17 06:57] LABS: ABSOLUTE RETICS # 44000 /CUMM (23000-93000); MEAN CORPUSCULAR VOLUME 68.4 FL (78-98); PLATELET COUNT 564 X10'3 (140-440); RED BLOOD COUNT 3.09 X10'6 (4.70-6.10); RED CELL DISTRIBUTION WIDTH 26.4 % (11.5-14.5); RETICULOCYTE % (AUTO) 1.4 % (0.5-1.5); WHITE BLOOD COUNT 10.3 X10'3 (4.5-11.0)
[2022-12-17 07:23] LABS: ALANINE AMINOTRANSFERASE 10 U/L (12-78); ALBUMIN 1.7 G/DL (3.4-5.0); ALBUMIN/GLOBULIN RATIO 0.3 (1.1-1.5); ALKALINE PHOSPHATASE 95 IU/L (46-116); ANION GAP 12 (8-16); ASPARTATE AMINO TRANSFERASE 25 U/L (10-37); BILIRUBIN,TOTAL 0.3 MG/DL (0.1-1.0); BLOOD UREA NITROGEN 19 MG/DL (7-18); BUN/CREATININE RATIO 23.2 (10.0-20.0); CALCIUM 8.7 MG/DL (8.5-10.1); CHLORIDE 105 MMOL/L (99-107); CREATININE 0.82 MG/DL (0.60-1.10); GLUCOSE 85 MG/DL (70-104); MAGNESIUM 1.7 MG/DL (1.5-2.4); POTASSIUM 3.2 MMOL/L (3.5-5.1); SODIUM 139 MMOL/L (135-145); TOTAL CARBON DIOXIDE 21.7 MMOL/L (24-32); TOTAL PROTEIN 6.7 G/DL (6.4-8.2); eGFR > 90 ML/MIN
[2022-12-17 07:24] LABS: HEMOGLOBIN 6.6 g/dl (14.0-17.9)
[2022-12-17 07:25] LABS: HEMATOCRIT 21.1 % (42.0-52.0)
--- NOTE | 2022-12-17 07:30 | NUR ---
PAGER ID: [phone] MESSAGE: [id number], Pt has critical lab values Hgb - 6.6 and Hct - 21.1. Would you like a type and screen done for a blood transfusion? Meño [phone]
--- NOTE | 2022-12-17 07:31 | NUR ---
Patient in room PCU 3025. I have received report from Frederic ZURITA and had the opportunity to ask questions and assume patient care.
[2022-12-17 07:33] LABS: % IRON SATURATION 3 % (11-46); IRON 8 UG/DL (53-167); TOTAL IRON BINDING CAPACITY 261 UG/DL (259-388)
[2022-12-17 07:50] LABS: NUCLEATED RED BLOOD CELLS 4 /100WBC (0-0); TOTAL CELLS COUNTED 100
[2022-12-17 07:51] LABS: PLATELET ESTIMATE INCREASED
[2022-12-17 07:52] LABS: ANISOCYTOSIS 3+; HYPOCHROMASIA 2+; MICROCYTOSIS 2+
[2022-12-17 07:53] LABS: ELLIPTOCYTES 1+; SCHISTOCYTES 1+; TARGET CELLS 1+
[2022-12-17] MEDS: busPIRone 15mg tablet PO SCH ×2 (07:53→20:28)
[2022-12-17] MEDS: cephalexin 250mg capsule PO SCH ×4 (07:53→20:29)
[2022-12-17] MEDS: pantoprazole 40mg Tablet.DR PO SCH (07:53)
[2022-12-17 07:54] LABS: ACANTHOCYTES 1+
[2022-12-17] MEDS: apixaban 5mg tablet PO SCH ×2 (07:56→20:29)
[2022-12-17] MEDS: potassium Cl 20 mEq SR tablet PO PRN ×3 (07:56→20:29)
[2022-12-17] MEDS: methadone 10mg tablet PO SCH (07:57)
[2022-12-17] MEDS: sodium ferric gluc complex inj 125 MG in normal saline 100ml IV soln 100 ML IV SCH (08:00)
[2022-12-17] MEDS: docusate sod 100mg capsule PO SCH ×2 (08:00→20:29)
[2022-12-17] MEDS: mag hydrox/Alum hydrox/simeth 30ml oral suspension PO PRN (08:01)
[2022-12-17] MEDS: K and/or MAG REPLACEMENT MC SCH ×2 (08:10→20:29)
[2022-12-17] MEDS: buPROPion SR 100mg tab PO SCH ×2 (10:50→20:29)
[2022-12-17] MEDS ORDERED: ondansetron 4mg rapidly disintigrating tab PO PRN (11:40)
[2022-12-17] MEDS: oxyCODONE/APAP 5-325mg tablet PO PRN ×2 (12:16→20:31)
--- NOTE | 2022-12-17 12:20 | NUR ---
Pt asked for Percocet instead of [place] for his pain. I opened and gave him the Percocet and he asked if it was a 10 and I told him it was a 5. He didn't want the Percocet becasue it wouldn't do enough. I then disposed of the Percocet and administered the [place] 10 to the pt. I will use Norcos for pt's pain for now on.
--- NOTE | 2022-12-17 14:09 | NUR ---
PRESSURE ULCER EDUCATION: DEFINITION: A pressure ulcer is an area of skin that breaks down when you stay in one position too long. The constant pressure against the skin reduces the blood flow to that area and the affected tissue dies. CAUSES: "Being bedridden or in a wheelchair "Fragile skin "Having a chronic condition, such as diabetes or vascular disease "Inability to move certain parts of your body without assistance "Older age "Incontinence of urine or stool SYMPTOMS: "A reddened area that DOES NOT turn white when pressed on - this can be the beginning of a pressure ulcer "A blister, deep sore or a crater - these can be advanced pressure ulcers FIRST AID: "Relieve the pressure on this area "Keep the area clean and dry "Call your primary doctor if you see any of the above symptoms "DO NOT massage the area "DO NOT use a donut shaped or ring shaped pillow- these actually interfere with the blood flow and cause complications PREVENTION: "Check for pressure ulcers everyday "Change position at least every two hours to relieve pressure "Use items that help relieve pressure- pillows, sheepskin, foam padding, and powders. "Keep skin clean and dry "Eat healthy well balanced meals "Exercise daily IF YOU SEE ANY OF THESE SYMPTOMS WHILE IN THE HOSPITAL - TELL YOUR NURSE IMMEDIATELY. IF YOU SEE ANY OF THESE SYMPTOMS WHILE AT HOME OR HAVE ANY QUESTIONS OR CONCERNS ABOUT PRESSURE ULCERS - CALL YOUR PRIMARY DOCTOR IMMEDIATELY. Addendum: 12/17/22 at 1410 by Deanna Story LVN Amended: Links added.
--- NOTE | 2022-12-17 16:12 | NUR ---
Malnutrition/Wound Consults: Pt admit s/p fall DX hypokalemia, CAD, and chronic pain hx wheel-chair bound at baseline but now fell after walking per EMR. Rolando 12 w/ Medial L lower leg and R posterior/medial lower leg venous ulcers present without staging per WOC note. Pt unsure of wt loss hx reports decreased intake per RN Malnutrition Screen. Pt only drank milks first two meals today currently still attempting to finish milk since quite sleepy per RN. Pt seen by RD at bedside; pt reports decreased appetite since admit is agreeable to Ensure Enlive TIDWM to assist meeting needs given poor appetite. RD d/w RN regarding ONS recs if MD agreeable; pending orders in EMR. Pt unable to stay awake for long during RD interview does have mild temporal wasting though unsure if baseline. Pt w/ mild weakness, no edema, and no consistent prior scaled wt hx in EMR; at this time lacks minimum malnutrition criteria. Will monitor for further malnutrition criteria and nutrition intervention needs this admit. Rec: 1. Continue regular diet; encourage PO 2. Ensure Enlive TIDWM to assist meeting needs; pending physician orders in EMR Addendum: 12/17/22 at [address] Amended: Links added.
[2022-12-17 16:45] LABS: HEMATOCRIT 22.8 % (42.0-52.0); HEMOGLOBIN 7.3 g/dl (14.0-17.9); MEAN CORPUSCULAR HEMOGLOBIN 22.2 PG (27.0-31.0); MEAN CORPUSCULAR VOLUME 69.5 FL (78-98); MEAN PLATELET VOLUME 6.5 FL (7.4-10.4); PLATELET COUNT 555 X10'3 (140-440); RED BLOOD COUNT 3.29 X10'6 (4.70-6.10); RED CELL DISTRIBUTION WIDTH 25.8 % (11.5-14.5); WHITE BLOOD COUNT 7.6 X10'3 (4.5-11.0)
--- NOTE | 2022-12-17 18:50 | NUR ---
Problems reprioritized. Patient report given, questions answered & plan of care reviewed with Nikki ZURITA.
[2022-12-17] MEDS: hydrOXYzine 25 MG tablet PO PRN (20:29)
[2022-12-18] VITALS (8 sets, daily range): BP systolic 92–107; BP diastolic 53–83
[2022-12-18] MEDS: potassium Cl 20mEq in NS 1,000 ML IV SCH ×2 (01:26→14:35)
[2022-12-18] MEDS: HYDROcodone/acetaminophen 10/325mg tab PO PRN ×3 (01:36→12:04)
--- NOTE | 2022-12-18 04:17 | NUR ---
Patient becoming very pushy about pain medications. I have had this patient before on an admit on another unit and he often becomes rude when he feels like he should get more pain medications. Patient showing manipulative and rude behaviors at this time. Pain medications being given appropriately as per Dr zavala.
--- NOTE | 2022-12-18 04:30 | NUR ---
Patient requesting Evon
[2022-12-18] MEDS: hydrOXYzine 25 MG tablet PO PRN (04:34)
[2022-12-18] MEDS: oxyCODONE/APAP 5-325mg tablet PO PRN ×2 (04:34→13:30)
--- NOTE | 2022-12-18 06:29 | NUR ---
Patient in room PCU 3025. I have received report from Nikki ZURITA and had the opportunity to ask questions and assume patient care.
--- NOTE | 2022-12-18 06:38 | NUR ---
Report given back to Meño ZURITA. Pt appears to be resting at this time although he keeps yelling out of his room to be "dangled" and told that we cannot dangle yet at this time due to shift change but we will help as soon as possible.
[2022-12-18 07:24] LABS: ABSOLUTE RETICS # 39700 /CUMM (23000-93000); HEMATOCRIT 22.3 % (42.0-52.0); MEAN CORPUSCULAR HGB CONC 31.3 g/dL (33.0-36.5); MEAN CORPUSCULAR VOLUME 70.2 FL (78-98); MEAN PLATELET VOLUME 6.5 FL (7.4-10.4); PLATELET COUNT 530 X10'3 (140-440); RED BLOOD COUNT 3.18 X10'6 (4.70-6.10); RED CELL DISTRIBUTION WIDTH 25.5 % (11.5-14.5); RETICULOCYTE % (AUTO) 1.3 % (0.5-1.5); WHITE BLOOD COUNT 9.8 X10'3 (4.5-11.0)
[2022-12-18] MEDS: busPIRone 15mg tablet PO SCH (07:32)
[2022-12-18] MEDS: pantoprazole 40mg Tablet.DR PO SCH (07:34)
[2022-12-18] MEDS: buPROPion SR 100mg tab PO SCH (07:34)
[2022-12-18] MEDS: apixaban 5mg tablet PO SCH (07:35)
[2022-12-18] MEDS: cephalexin 250mg capsule PO SCH ×2 (07:35→12:51)
[2022-12-18] MEDS: methadone 10mg tablet PO SCH (07:35)
[2022-12-18 07:45] LABS: ALANINE AMINOTRANSFERASE 11 U/L (12-78); ALBUMIN 1.6 G/DL (3.4-5.0); ALBUMIN/GLOBULIN RATIO 0.3 (1.1-1.5); ALKALINE PHOSPHATASE 90 IU/L (46-116); ANION GAP 8 (8-16); ASPARTATE AMINO TRANSFERASE 14 U/L (10-37); BILIRUBIN,TOTAL 0.2 MG/DL (0.1-1.0); BLOOD UREA NITROGEN 12 MG/DL (7-18); BUN/CREATININE RATIO 16.7 (10.0-20.0); CALCIUM 8.4 MG/DL (8.5-10.1); CHLORIDE 105 MMOL/L (99-107); CREATININE 0.72 MG/DL (0.60-1.10); GLUCOSE 73 MG/DL (70-104); MAGNESIUM 1.7 MG/DL (1.5-2.4); POTASSIUM 4.1 MMOL/L (3.5-5.1); SODIUM 134 MMOL/L (135-145); TOTAL CARBON DIOXIDE 21.5 MMOL/L (24-32); TOTAL PROTEIN 6.5 G/DL (6.4-8.2); eGFR > 90 ML/MIN
--- NOTE | 2022-12-18 07:54 | NUR ---
PAGER ID: [phone] MESSAGE: [id number], Pt has critical lab value Hgb - 7.0 up from 6.6 yesterday. Meño [phone]
[2022-12-18] MEDS: docusate sod 100mg capsule PO SCH (08:00)
[2022-12-18] MEDS: K and/or MAG REPLACEMENT MC SCH (08:00)
[2022-12-18] MEDS: sodium ferric gluc complex inj 125 MG in normal saline 100ml IV soln 100 ML IV SCH (08:39)
[2022-12-18 09:15] LABS: ANISOCYTOSIS 3+; MICROCYTOSIS 1+; NUCLEATED RED BLOOD CELLS 2 /100WBC (0-0); PLATELET ESTIMATE INCREASED; TOTAL CELLS COUNTED 100
[2022-12-18 09:18] LABS: ACANTHOCYTES 1+; BURR CELLS 2+; SCHISTOCYTES FEW; TARGET CELLS 1+
[2022-12-18 09:19] LABS: ELLIPTOCYTES FEW; POLYCHROMASIA FEW
[2022-12-18] MEDS: mag hydrox/Alum hydrox/simeth 30ml oral suspension PO PRN (12:51)
--- NOTE | 2022-12-18 13:17 | NUR ---
Wound care in to assess the patients backside since it could not be evaluated yesterday. The pt. is willing to stand for assessment. The primary nurse to the bedside to assist. The pt. gets to the side of the bed primarily independently. He was assisted to stand using a walker by the primary nurse. His sacrococcygeal area is intact and reddened, more to the right distal buttock but continues to toney. The pt. sat on the side of the bed and was then assisted to a position of stated comfort in the bed. Wound care performed to his bilateral LEs in support of the primary nurse. The pt. agreed to have his right heel floated but declined the left stating it causes pressure on his hip resulting in increased pain. Bed left in the lowest position, call light in reach. Report was given to the primary nurse.
--- NOTE | 2022-12-18 14:02 | NUR ---
PAGER ID: [phone] MESSAGE: [id number], Transfusion is finishing up. Did you want any lab work done or still planning on discharge after? Meño [phone]
[2022-12-18] MEDS ORDERED: HYDR-3972 PO (14:38)
[2022-12-18 15:32] LABS: HEMATOCRIT 23.8 % (42.0-52.0); HEMOGLOBIN 7.4 g/dl (14.0-17.9); MEAN CORPUSCULAR HEMOGLOBIN 22.2 PG (27.0-31.0); MEAN CORPUSCULAR HGB CONC 31.3 g/dL (33.0-36.5); MEAN CORPUSCULAR VOLUME 70.7 FL (78-98); MEAN PLATELET VOLUME 6.7 FL (7.4-10.4); PLATELET COUNT 545 X10'3 (140-440); RED BLOOD COUNT 3.36 X10'6 (4.70-6.10); RED CELL DISTRIBUTION WIDTH 26.3 % (11.5-14.5); WHITE BLOOD COUNT 9.3 X10'3 (4.5-11.0)
--- NOTE | 2022-12-18 15:43 | NUR ---
PAGER ID: [phone] MESSAGE: [id number], Do you have the printed pharmacy note for pt's [place] prescription? Meño [phone]
--- NOTE | 2022-12-18 16:32 | NUR ---
Pt was DC'd as per 's orders. All IV and tele was unhooked. Education was provided at bedside to pt, all questions were answered. Pt will make follow up appointment with provider and vegetable picker meds at their pharmacy. All belongings were gathered with pt and taken down to lobby. Pt was wheeled down to lobby by care staff and will be picked up by medivan destined for home.
== END 2022-12-18 16:30 | disposition home or self-care (01) | DRG 422 ==
LOC: ER 18:53 → ED HOLD 22:40 → EDBEDREQ 23:50 → PCU 3S 12-17 00:30
PROVIDERS: ADMIT Internal Medicine; ATTEND Family Medicine
PROC: 30233N1 Transfusion of Nonautologous Red Blood Cells into Peripheral Vein, Percutaneous Approach (ICD-10-PCS; principal; 2022-12-17)
DX: E87.6 Hypokalemia (principal); E86.0 Dehydration; E46 Unspecified protein-calorie malnutrition; I50.9 Heart failure, unspecified; M87.88 Other osteonecrosis, other site; D64.9 Anemia, unspecified; S70.00XA Contusion of unspecified hip, initial encounter; F11.90 Opioid use, unspecified, uncomplicated; G89.4 Chronic pain syndrome; W01.0XXA Fall on same level from slipping, tripping and stumbling without subsequent striking against object, initial encounter; Y93.01 Activity, walking, marching and hiking; M21.70 Unequal limb length (acquired), unspecified site; F15.90 Other stimulant use, unspecified, uncomplicated; F17.210 Nicotine dependence, cigarettes, uncomplicated; I25.10 Atherosclerotic heart disease of native coronary artery without angina pectoris; I25.2 Old myocardial infarction; Z86.711 Personal history of pulmonary embolism; Z90.49 Acquired absence of other specified parts of digestive tract; Z90.81 Acquired absence of spleen; Z91.81 History of falling; Z59.00 Homelessness unspecified; Y92.89 Other specified places as the place of occurrence of the external cause; Y99.8 Other external cause status; Z86.718 Personal history of other venous thrombosis and embolism; Z68.25 Body mass index [BMI] 25.0-25.9, adult; Z79.899 Other long term (current) drug therapy; Z99.3 Dependence on wheelchair; Z79.01 Long term (current) use of anticoagulants
CPT/HCPCS: 36415; 36430; 73502; 80053; 80305; 81001; 83540; 83550; 83735; 84443; 85007; 85008; 85025; 85027; 85045; 85610; 85730; 86885; 86900; 86901; 86920; 99285; A4349; A4649; A6196; A6446; A6449; G0378; J2270; J2405; J2916; J3480; J3490; J7030; J7040; P9016; Q0177